=== PATIENT | female | born 1990 | race Caucasian/White ===

== ENCOUNTER 2019-03-20 13:36 | Emergency (ER) | payer OTHER ==
[2019-03-20 13:55] VITALS: BMI 25.0
--- NOTE | 2019-03-20 13:57 | PDOC ---
History of Present Illness - General Chief Complaint: CVA/TIA Stated Complaint: AWOKE WITH NUMBNESS TO RIGHT ARM YESTERDAY DV Time Seen by Provider: 03/20/19 13:45 - History of Present Illness Initial Comments: 03/20/19 14:04 Chief complaint: Slurred speech and right arm weakness History of present illness: Patient noted difficulty speaking yesterday around 4 PM in the afternoon, stating that she had trouble getting out her words and trouble articulating them clearly. This morning around 7 AM she awoke and felt that her right arm was weak. She denies numbness or paresthesias. She denies any symptoms in her right lower extremity, or her left extremities. She denies any visual symptoms. Review of systems: Denies recent fever/chills, URI symptoms, sore throat, cough , chest pain, shortness of breath, abdominal pain, nausea, vomiting, diarrhea, urinary tract symptoms, vaginal bleeding or discharge. Periods have been regular and she is on control pills denies missing any doses. Past medical history: Diagnosed with MS several years ago, symptoms at that time reported as visual and lower extremity, CT/MRI results are unknown, she received no treatment and has had no follow-up. Severe anxiety disorder, sees a therapist, exacerbation of symptoms recently. No other medical or surgical problems past her present, no regular medication. Social history: Denies drugs or alcohol or tobacco. Active and without disability, lives with mother, stable home Family history: Reviewed and noncontributory including neurologic disease, early coronary artery disease, metabolic disease including diabetes Physical exam: Alert and oriented, well-developed well-nourished, extremely anxious and tearful. Otherwise, appears to be in no physical distress Afebrile, vital signs normal PERRLA 4 mm, fundi benign, ENT clear Neck supple without bruit mass or nodes Chest clear to P&A, full breath sounds bilaterally. CV S1 and S2 normal without murmur rub or gallop pulses full and symmetric no JVD or edema no bruits 76 and regular Abdomen soft nontender without mass or organomegaly. All sounds normal. Nondistended Extremities no CCE Skin clear, no rash, adequate turgor and wet mucous membranes Neurological: C2 to 12 intact. No facial palsy is evident. Speech appears to be normal at this time. There is no slurred speech or dysarthria. Sensory examination is normal. 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 Babinski's down bilaterally. Impression: Possible recurrence of MS, possible subacute CVA with symptoms since 4 PM yesterday, possible severe anxiety reaction Plan: Labs, MRI, and further evaluation depending on results. Neurological consultation. Past History - Past Medical History Allergies/Adverse Reactions: Allergies Allergy/AdvReac Type Severity Reaction Status Date / Time No Known Allergies Allergy Verified 01/11/16 20:46 Home Medications: Ambulatory Orders Dimethyl Fumarate [Tecfidera] 240 mg PO BID 01/11/16 - Immunization History Td Vaccination: Yes Immunization Up to Date: Yes - Suicide/Smoking/Psychosocial Hx Smoking Status: No Smoking History: Never smoked Have you smoked in the past 12 months: No Number of Cigarettes Smoked Daily: 0 'Breaking Loose' booklet given: 01/11/16 Hx Alcohol Use: Yes Drug/Substance Use Hx: No Substance Use Type: None Critical Care Time/[facility] Note - Medical Decision Making Note: 03/20/19 15:19 Blood glucose is 59, potassium 3.2. Otherwise CBC chemistries and cardiac enzymes are without significant abnormalities. 03/20/19 17:34 MRI was unable to be performed because the patient could not adequately remove all her piercings. CT was performed and read by Dr. Tejeda. There is a new lesion in the left frontal cortex. It is uncertain whether this is a plaque from multiple sclerosis or a recent infarct. Neurology was paged and the patient to be admitted for further evaluation of the lesion. She is stable, alert and oriented , in no distress. 03/20/19 18:35 Repeat glucose 107 Repeat physical including neurologic exam was unchanged. Spoke to neurology consult Dr. Harrell. Case was thoroughly discussed, including the lab results and the results of the CT. He agreed that an MRI would be helpful in distinguishing plaque from acute infarct. However, MRI could not be performed because the patient was unable to remove the metal body piercings adorning her ears and nose. He also felt that there would be no danger discharging the patient and having her return tomorrow to be seen in his office with the attempt to remove remaining piercings and perform an adequate MRI. Admission, observation, and further evaluation and treatment was recommended to the patient, however, she was hesitant to be admitted to the hospital and preferred follow-up tomorrow as an outpatient with neurologist. She was given instructions to return to the emergency room immediately if any of her symptoms changed, otherwise see at 9:30 AM tomorrow March 21 at his office at [address] [place] [address] from [facility]. These written instructions were reviewed with the patient and her mother, who agreed to monitor the patient and ensure timely follow-up as directed. Patient fully ambulatory and in no acute distress at discharge to follow-up as recommended. *DC/Admit/Observation/Transfer Diagnosis at time of Disposition: Multiple sclerosis - Discharge Dispostion Disposition: HOME Condition at time of disposition: Stable Decision to Admit order: No - Referrals Referrals: Jamin Harrell MD [Staff Physician] - - Patient Instructions Additional Instructions: Return to the emergency room immediately if there is any change in your symptoms. Otherwise, you must see neurologist tomorrow for further evaluation and treatment, probably including an MRI. Hospitalization may be required. Eat regular meals to maintain your blood sugar. - Post Discharge Activity Forms/Work/School Notes: Back to Work
[2019-03-20 14:29] LABS: ALBUMIN 4.5 g/dl (3.4-5.0); BILIRUBIN,TOTAL 0.9 mg/dl (0.2-1); CALCIUM 9.1 mg/dl (8.5-10); CREATININE 0.7 mg/dl (0.55-1.3); POTASSIUM 3.2 mmol/L (3.5-5.1); TOT PROT 7.5 g/dl (6.4-8.2)
[2019-03-20 14:39] LABS: BASO % 0.5 % (0-2.0); EOS % 0.5 % (0-4.5); HEMATOCRIT 39.8 % (32.4-45.2); HEMOGLOBIN 13.5 GM/dl (10.7-15.3); LYMPH % 29.8 % (8-40); MCH 32.2 pg (25.7-33.7); MCHC 33.9 g/dl (32.0-36.0); MEAN CELL VOLUME 95.1 fl (80-96); MEAN PLT VOLUME 9.6 fl (7.5-11.1); MONO % 4.6 % (3.8-10.2); NEUT % 64.6 % (42.8-82.8); PLATELET COUNT 176 K/MM3 (134-434); RBC 4.18 M/mm3 (3.60-5.2); RDW 11.8 % (11.6-15.6); WHITE BLOOD COUNT 6.9 K/mm3 (4.0-10.8)
[2019-03-20 14:49] LABS: EPITHELIAL CELLS FEW /hpf
--- NOTE | 2019-03-20 15:23 | EKG ---
Test Reason : Blood Pressure : / mmHG Vent. Rate : 076 BPM Atrial Rate : 076 BPM P-R Int : 156 ms QRS Dur : 094 ms QT Int : 398 ms P-R-T Axes : 007 059 025 degrees QTc Int : 447 ms NORMAL SINUS RHYTHM NORMAL ECG NO PREVIOUS ECGS AVAILABLE Confirmed by LISA JOHNSON, WISAM ([id number]) on 03/20/2019 3:22:40 PM Referred By: DR COYNE Confirmed By:WISAM GONZALEZ MD
[2019-03-20] MEDS ORDERED: POTASSIUM CHLORIDE 10 MEQ in DEXTROSE 5%-NORMAL SALINE 1,000 ML IVPB SCH (15:30)
[2019-03-20] MEDS ORDERED: LORazepam 0.5 MG TABLET PO ONE (16:19)
[2019-03-20 16:31] VITALS: TEMP 97.1
[2019-03-20] MEDS ORDERED: LORazepam 0.5 MG TABLET ONE (16:38)
[2019-03-20 18:39] VITALS: BP 115/68; PULSE 68
== END 2019-03-20 18:36 | disposition home or self-care (01) ==
LOC: FER 13:36
DX: G35 Multiple sclerosis (principal)
CPT/HCPCS: 36415; 70450-TC; 80053; 81003; 81015; 82550; 82962; 84484; 84703; 85025; 87086; 93005; 99285-25

== ENCOUNTER 2019-04-02 17:12 | Inpatient (IN) | payer OTHER ==
--- NOTE | 2019-04-02 17:23 | PDOC ---
Rapid Medical Evaluation Time Seen by Provider: 04/02/19 17:21 Medical Evaluation: Allergies Allergy/AdvReac Type Severity Reaction Status Date / Time No Known Allergies Allergy Verified 01/11/16 20:46 04/02/19 17:23 The patient c/o: hx ms, sent by jaclyn echevarria for admission due to flare, Patient on brief exam: vss, ambulatory Patient ordered for: labs, urine, ekg, iv, and neuro consult Patient to proceed to the ED Discharge Disposition - Diagnosis Multiple sclerosis - Discharge Dispostion Condition at time of disposition: Stable - Referrals - Patient Instructions - Post Discharge Activity
[2019-04-02] MEDS ORDERED: methylPREDNISolone NA SUCC 125 MG/2 ML VIAL IVPB ONE (18:41)
--- NOTE | 2019-04-02 19:56 | PDOC ---
Documentation entered by Deb Minaya SCRIBE, acting as scribe for Mirela Henley MD. Mirela Henley MD: This documentation has been prepared by the Rei unger Adrianna, SCRIBE, under my direction and personally reviewed by me in its entirety. I confirm that the documentation accurately reflects all work, treatment, procedures, and medical decision making performed by me. History of Present Illness - General Stated Complaint: SENT BY PCP Time Seen by Provider: 04/02/19 17:21 History Source: Patient Exam Limitations: No Limitations - History of Present Illness Initial Comments: The patient is a 28 year old female, with a significant PMH of multiple sclerosis, severe anxiety disorder, and major depressive disorder, who presents to the emergency department today for MS flare up for 3 weeks. Patient notes she was diagnosed with MS several years ago, but her current flare up was the worst shes had. She notes that her entire right side of her body went numb and weak. Patient reports that she is right hand dominant, and has not been able to lift her arm to write or feed herself. She notes that her flare-ups in the past have caused symptoms on her left side and only lasted for a few days, but this is the first time she is experiencing right-sided symptoms that have lasted for over a week. She endorses associated slurred speech, which has been present for the past month. Patient was seen in the ED 3 weeks ago for the same complaint, and followed up with Dr. Harrell who placed her on a new medication 4 days ago for MS. She reports no changes in her symptoms, so Dr. Harrell advised she come to the ED for evaluation. Patient complains of a frontal headache while in the ED, which is secondary to crying. The patient denies chest pain, shortness of breath, and dizziness. Denies fever, chills, nausea, vomit, diarrhea and constipation. Denies dysuria, frequency, urgency and hematuria. Allergies: NKA Past surgical history: None reported Social history: Severe anxiety and major depressive disorder Neuro: Dr. Jamin Harrell 04/02/19 19:52 Past History - Past Medical History Allergies/Adverse Reactions: Allergies Allergy/AdvReac Type Severity Reaction Status Date / Time No Known Allergies Allergy Verified 01/11/16 20:46 Home Medications: Ambulatory Orders Dimethyl Fumarate [Tecfidera] 240 mg PO BID 01/11/16 Norethindrone-E.estradiol-Iron [Blisovi 24 Fe Tablet] 1 each PO DAILY 04/02/19 COPD: No - Immunization History Td Vaccination: Yes Immunization Up to Date: Yes - Suicide/Smoking/Psychosocial Hx Smoking Status: No Smoking History: Current every day smoker Have you smoked in the past 12 months: Yes Number of Cigarettes Smoked Daily: 0 Information on smoking cessation initiated: No 'Breaking Loose' booklet given: 01/11/16 Hx Alcohol Use: No Drug/Substance Use Hx: No Substance Use Type: None Review of Systems - Review of Systems Comments:: GENERAL/CONSTITUTIONAL: No fever or chills. No weakness. HEAD, EYES, EARS, NOSE AND THROAT: No change in vision. No ear pain or discharge. No sore throat. CARDIOVASCULAR: No chest pain or shortness of breath. RESPIRATORY: No cough, wheezing, or hemoptysis. GASTROINTESTINAL: No nausea, vomiting, diarrhea or constipation. GENITOURINARY: No dysuria, frequency, or change in urination. MUSCULOSKELETAL: No joint or muscle swelling or pain. No neck or back pain. SKIN: No rash NEUROLOGIC: +Frontal headache secondary to crying. +Right-sided numbness and weakness. +Slurred speech. No vertigo, loss of consciousness. ENDOCRINE: No increased thirst. No abnormal weight change. HEMATOLOGIC/LYMPHATIC: No anemia, easy bleeding, or history of blood clots. ALLERGIC/IMMUNOLOGIC: No hives or skin allergy. 04/02/19 19:52 *Physical Exam - Vital Signs Last Vital Signs Temp Pulse Resp BP Pulse Ox 98.1 F 98 H 18 127/79 100 04/02/19 17:21 04/02/19 17:21 04/02/19 17:21 04/02/19 17:21 04/02/19 17:21 - Physical Exam Comments: GENERAL: The patient is in no acute distress. HEAD: Normal with no signs of trauma. EYES: PERRLA, EOMI, sclera anicteric, conjunctiva clear. ENT: Ears normal, nares patent, oropharynx clear without exudates. Moist mucous membranes. NECK: Normal range of motion, supple without lymphadenopathy, JVD, or masses. LUNGS: Breath sounds equal, clear to auscultation bilaterally. No wheezes, and no crackles. HEART:Regular rate and rhythm, normal S1 and S2 without murmur, rub or gallop. ABDOMEN: Soft, nontender, normoactive bowel sounds. No guarding, no rebound. No masses palpable. EXTREMITIES: Normal range of motion, no edema. No clubbing or cyanosis. No erythema, or tenderness. NEUROLOGICAL: +RUE weakness. +Slurred speech. Cranial nerves II through XII grossly intact. MUSCULOSKELETAL: Back non-tender to palpation, no CVA tenderness SKIN: Warm, Dry, normal turgor, no rashes or lesions noted. 04/02/19 19:52 ED Treatment Course - LABORATORY CBC & Chemistry Diagram: 04/02/19 19:25 04/02/19 19:25 Medical Decision Making - Medical Decision Making 04/02/19 20:12 Ms Cárdenas is a 28 yo F who presents for admission for MS flair Pt s/p dx of MS Pt notes that approximately 1 month ago her speech was slurred/different than prior Two weeks ago, she work up and noted Right arm numbness This has progressively worsened to the point that her right arm is weak She was seen in the ER last week (CT performed, new frontal lesion) pt ultimately discharge to home and then followed up with Dr. Kothari She was started on Tecfidera Pt notes that she has become more unstable with walking, bumping into things Pt notes a headache (For which she typically takes motrin) No nausea No vomiting No diarrhea No fevers or chills Laboratory Tests 04/02/19 19:25 Sodium 140 Potassium 4.2 Chloride 105 Carbon Dioxide 28 BUN 11 Creatinine 1.0 Random Glucose 104 04/02/19 20:13 04/02/19 20:14 Pt presenting to the ER for admission for MS flair Pt seen by Neuro today who recommended Solumedrol 250mg IV q 6, PPI, RISS, PT MRI was already performed 04/02/19 20:25 Clinical impression: MS flair 04/02/19 20:39 Laboratory Tests 04/02/19 19:25 WBC 6.2 Hgb 13.6 Hct 40.2 Plt Count 178 04/02/19 22:07 EKG - Twelve-lead EKG was performed and reviewed by me. There is normal sinus rhythm with a normal rate. The axis is normal. The intervals are normal. There are no ST or T wave abnormalities. Impression: Normal twelve-lead EKG *DC/Admit/Observation/Transfer Diagnosis at time of Disposition: Multiple sclerosis - Discharge Dispostion Condition at time of disposition: Stable Decision to Admit order: Yes - Referrals - Patient Instructions - Post Discharge Activity
[2019-04-02 19:59] LABS: BASO % 0.8 % (0-2.0); EOS % 0.8 % (0-4.5); HEMATOCRIT 40.2 % (32.4-45.2); HEMOGLOBIN 13.6 GM/dL (10.7-15.3); LYMPH % 26.5 % (8-40); MCH 31.7 pg (25.7-33.7); MCHC 33.7 g/dl (32.0-36.0); MEAN CELL VOLUME 94.1 fl (80-96); MEAN PLT VOLUME 9.8 fl (7.5-11.1); MONO % 4.2 % (3.8-10.2); NEUT % 67.7 % (42.8-82.8); PLATELET COUNT 178 K/MM3 (134-434); RBC 4.28 M/mm3 (3.60-5.2); RDW 12.1 % (11.6-15.6); WHITE BLOOD COUNT 6.2 K/mm3 (4.0-10.0)
[2019-04-02] MEDS ORDERED: IBUPROFEN 600 MG TABLET (FP) PO ONE ×2 (20:03→21:08)
[2019-04-02 20:11] LABS: ALBUMIN 4.1 g/dl (3.4-5.0); BILIRUBIN,TOTAL 0.4 mg/dL (0.2-1); POTASSIUM 4.2 mmol/L (3.5-5.1); TOT PROT 7.6 g/dl (6.4-8.2)
[2019-04-02] MEDS ORDERED: PANTOPRAZOLE SODIUM 40 MG VIAL IVPUSH ONE (20:24)
[2019-04-02] MEDS ORDERED: methylPREDNISolone NA SUCC 125 MG/2 ML VIAL ONE (21:00)
[2019-04-02] MEDS ORDERED: PANTOPRAZOLE SODIUM 40 MG VIAL ONE (21:01)
--- NOTE | 2019-04-02 21:46 | PN ---
Teaching Attending Note Name of Resident: Sheridan Kaiser ATTENDING PHYSICIAN STATEMENT I saw and evaluated the patient. I reviewed the resident's note and discussed the case with the resident. I agree with the resident's findings and plan as documented. SUBJECTIVE: Sakina is a 28 year old woman with a PMH of multiple sclerosis, tobacco use ( eCigarettes?), severe anxiety disorder, and major depressive disorder, who presents to the ER for MS flare up. Patient notes she was diagnosed with MS several years ago, but her current flare up was the worst shes had. She notes that the entire right side of her body went numb and weak. Patient reports that she is right hand dominant, and has not been able to lift her arm to write or feed herself. She notes that her flare-ups in the past have caused symptoms on her left side and only lasted for a few days, but this is the first time she is experiencing right-sided symptoms that have lasted for a week. She has associated slurred speech, which has been present for the past month. Patient was seen in the ED 3 weeks ago for the same complaint, and followed up with Dr. Harrell who placed her on a new medication 4 days ago for MS. She reports no changes in her symptoms, so Dr. Harrell advised she come to the ER for evaluation. Patient complains of a frontal headache while in the ER, which is secondary to crying. The patient denies chest pain, shortness of breath, dizziness, fever, chills, nausea, vomiting, diarrhea, constipation, dysuria, frequency, urgency or hematuria. OBJECTIVE: Alert Vital Signs Period Temp Pulse Resp BP Sys/Rodas Pulse Ox Last 24 Hr 98.1 F 98 18 127/79 100 HEENT: No Jaundice, eye redness or discharge, PERRLA, EOMI. Normocephalic, atraumatic. External ears are normal and hearing is grossly intact. No nasal discharge. Neck: Supple, nontender. No palpable adenopathy or thyromegaly. No JVD Chest: Good effort. Clear to auscultation and percussion. Heart: Regular. No S3, rub or murmur Abdomen: Not distended, soft, nontender and no HSM. No rebound or guarding. Normal bowel sounds. Ext: Peripheral pulses intact. No leg edema. Skin: Warm and dry. No petechiae, rash or ecchymosis. Neuro: Alert. Oriented x3. CN 2-12 grossly intact. Slurred speech, expressive aphasia; right hemiparesis; slow gait, dragging right leg; Sensation grossly intact in all four extremities and DTR are symmetric. Psych: Appropriate mood and affect. Good insight. Home Medications Medication Instructions Recorded Dimethyl Fumarate [Tecfidera] 240 mg PO BID 01/11/16 Norethindrone-E.estradiol-Iron 1 each PO DAILY 04/02/19 [Blisovi 24 Fe Tablet] Abnormal Lab Results 04/02/19 19:25 Anion Gap 7 L Current Medications Generic Name Dose Route Start Last Admin Trade Name Freq PRN Reason Stop Dose Admin Enoxaparin Sodium 40 mg 04/03/19 10:00 Lovenox - SQ DAILY [facility] Insulin Aspart 1 vial 04/03/19 07:00 Novolog Vial Sliding Scale - SQ ACHS [facility] Protocol ASSESSMENT AND PLAN: 1. MS Flare - Brain and C-spine MRI show increase in MS lesions. Neurologist recommended treatment with Solumedrol 250 mg IV; also getting IV Protonix. Will do neurochecks, implement fall/aspiration precautions and provide generous emotional support. Consult psychiatry to devise a care plan for anxiety disorder and depression. 2. DM For now, we will hold the home diabetes drugs and implement sliding scale insulin regimen. Provide comprehensive diabetes care with patient teaching and counseling about the importance of adherence to prescribed diabetes regimen, euglycemia, eye care and foot care. 3. Tobacco Use Counseled on risks associated with tobacco use as well as eCigarettes. We will provide patient all the necessary assistance to facilitate smoking cessation and prescribe Nicotine patch. 4. Hypertension - Restart outpatient antihypertensive drugs and revise regimen to ensure smooth [id number] good BP control. Nonpharmacologic measures to control hypertension like weight loss, salt restriction and exercise discussed. 5. DVT prophylaxis - Lovenox 40 mg SQ q 24 hours. 6. Advance directives - Full code
--- NOTE | 2019-04-02 22:51 | HP ---
Admitting History and Physical - Primary Care Physician PCP: Dr Ballard - Admission Chief Complaint: Difficulty speaking, R sided weakness History of Present Illness: Pt is a 28 yo F with PMHx of MS (diagnosed 6 years ago), MDD, and HARLEY presenting with speech abnormality, and worsening R sided weakness. Pt noticed sudden speech difficulty about a month, with slurring of her speech and slowed mentation. No hx of trauma or falls. About 3 weeks ago, she noticed sudden numbness of her R hand, with eventual weakness of the right hand. She saw Dr Harrell 3 weeks go at [facility] and was restarted on her MS medications that were stopped 1 year earlier after 5 years of treatment. Over the past week, despite being on medication, she noticed weakness of RLE with associated gait abnormality. Patient is right hand dominant, and has been unable to lift her arm to write or feed herself. She had new imaging done- CT head and MRI showing progression of MS and was referred to the ED for admission for treatment with IV solumed 250mg Q6H, PPI, ISS, physical therapy to be admitted under Dr Ballard' s service. 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 Home Medications - Allergies Allergies/Adverse Reactions: Allergies Allergy/AdvReac Type Severity Reaction Status Date / Time No Known Allergies Allergy Verified 01/11/16 20:46 - Home Medications Home Medications: Ambulatory Orders Dimethyl Fumarate [Tecfidera] 240 mg PO BID 01/11/16 Norethindrone-E.estradiol-Iron [Blisovi 24 Fe Tablet] 1 each PO DAILY 04/02/19 Review of Systems - Review of Systems Constitutional: denies: Chills, Diaphoresis, Fever Eyes: reports: Blurred Vision HENT: denies: Difficult Swallowing, Hearing Loss, Mouth Swelling, Nasal Congestion Neck: reports: No Symptoms Cardiovascular: denies: Chest Pain, Edema, Palpitations, Shortness of Breath Respiratory: denies: Cough, Exercise Intolerance, SOB Gastrointestinal: denies: Abdominal Pain, Constipation, Diarrhea, Vomiting Genitourinary: denies: Burning, Discharge, Flank Pain Musculoskeletal: denies: Muscle Pain Neurological: reports: Change in Speech, Headache, Numbness, Unsteady Gait, Weakness. denies: Confusion, Dizziness Physical Examination Vital Signs: Vital Signs Temperature 98.1 F 04/02/19 17:21 Pulse Rate 98 H 04/02/19 17:21 Respiratory Rate 18 04/02/19 17:21 Blood Pressure 127/79 04/02/19 17:21 O2 Sat by Pulse Oximetry (%) 100 04/02/19 17:21 Constitutional: Yes: No Distress, Calm Eyes: Yes: EOM Intact, PERRL, Other (R horizontal nystagmus) Neck: Yes: Supple Cardiovascular: Yes: S1, S2 Respiratory: Yes: CTA Bilaterally Gastrointestinal: Yes: Normal Bowel Sounds, Soft Musculoskeletal: Yes: Muscle Weakness (RUE, RLE) Edema: No Peripheral Pulses WNL: Yes Integumentary: Yes: Tattoos Neurological: Yes: Alert, Oriented, Aphasia, Babinski positive (RLE), Cran Nerves II-XII Intact, Facial Droop (Flattened R nasolabial fold), Unsteady Gait (Hemiplegic gait). No: Ataxia (No dysdiachokinesia, no limb ataxia), Loss of Sensation ...Motor Strength: LUE (5/5), LLE (5/5), RUE (2/5 hand devops consultant, 4/5 Abduction, Limited hand raise to 90 degrees with drift on RUE), RLE (3/5) Psychiatric: Yes: Alert, Oriented Labs: CBC, BMP 04/02/19 19:25 04/02/19 19:25 Imaging - Results Cat Scan: Report Reviewed MRI: Report Reviewed Assessment/Plan Ambulatory Orders Dimethyl Fumarate [Tecfidera] 240 mg PO BID 01/11/16 Norethindrone-E.estradiol-Iron [Blisovi 24 Fe Tablet] 1 each PO DAILY 04/02/19 Assessment/Plan Pt is a 28 yo F with PMHx of MS (diagnosed 6 years ago), MDD, and HARLEY presenting with speech abnormality, and worsening R sided weakness. Assessment: MS MDD HARLEY Plan: Neuro consult- Dr Harrell Iv solumed 250mg Q6H PPI ISS PT Med surg Regular diet Visit type - Emergency Visit Emergency Visit: Yes ED Registration Date: 04/02/19 Care time: The patient presented to the Emergency Department on the above date and was hospitalized for further evaluation of their emergent condition. - New Patient This patient is new to me today: Yes Date on this admission: 04/03/19 - Critical Care Critical Care patient: No
[2019-04-02 23:41] LABS: HYALINE CASTS 2 /lpf (0-8); URINE APPEARANCE CLEAR; URINE BILIRUBIN NEGATIVE (NEGATIVE); URINE COLOR YELLOW; URINE GLUCOSE (UA) NEGATIVE (NEGATIVE); URINE KETONE TRACE (NEGATIVE); URINE LEUK ESTERASE 1+ (NEGATIVE); URINE NITRITE NEGATIVE (NEGATIVE); URINE PROTEIN NEGATIVE (NEGATIVE); URINE RBC 3 /hpf (0-4); URINE WBC 5 /hpf (0-5)
[2019-04-02 23:43] LABS: HCG,QUALITATIVE URINE Negative
[2019-04-03 03:09] VITALS: BMI 25.4
[2019-04-03] MEDS: methylPREDNISolone NA SUCC 125 MG/2 ML VIAL IVPB SCH ×4 (03:52→21:09)
[2019-04-03] MEDS ORDERED: INSULIN (NOVOLOG) ASPART 100 UNITS/ML 10ML VIAL ONE ×2 (06:10→21:36)
[2019-04-03] MEDS: INSULIN SLIDING SCALE (NOVOLOG) 1 VIAL SQ SCH ×4 (06:30→22:01)
--- NOTE | 2019-04-03 08:58 | CONSULT ---
Consult - text type - Consultation Consultation Note: Neurology Chief Complaint: Difficulty speaking, R sided weakness History of Present Illness: 28 yo F with PMHx of MS (diagnosed 6 years ago, previously followed by Dr. Farah) , MDD, and HARLEY presenting with speech abnormality, and worsening R sided weakness. Pt noticed sudden speech difficulty about a month, with slurring of her speech and slowed mentation. No hx of trauma or falls. About 3 weeks ago, she noticed sudden numbness of her R hand, with eventual weakness of the right hand. She had no been on MS medication for 1.5 years because of flushing from Tecfidera which she had been on. Approximately one week ago, she noticed weakness of RLE with associated gait abnormality, difficulty with speech, RUE weakness. [facility] CT head which showed L periventricular lesion. She was not able to have MRI there because of piercings and therefore was sent to see me in the office a day later. I ordered MRI brain and C spine at the office which showed progression of MS plaque burden in brain, also plaques diffusely in C spine from C2-C6. She was started on Tecfidera immediately once labs completed last week and was seen by me in the office yesterday. Due to continued symptoms we discussed admission for IV steroids and she was in agreement. Plan would be for 3-5 days of steroids (to end Monday evening or Monday evening) depending on patient's course. 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 Family: Mother with MS Home Medications - Allergies Allergies/Adverse Reactions: Allergies Allergy/AdvReac Type Severity Reaction Status Date / Time No Known Allergies Allergy Verified 01/11/16 20:46 - Home Medications Home Medications: Ambulatory Orders Dimethyl Fumarate [Tecfidera] 240 mg PO BID 01/11/16 Norethindrone-E.estradiol-Iron [Blisovi 24 Fe Tablet] 1 each PO DAILY 04/02/19 Review of Systems - Review of Systems Constitutional: denies: Chills, Diaphoresis, Fever Eyes: reports: Blurred Vision HENT: denies: Difficult Swallowing, Hearing Loss, Mouth Swelling, Nasal Congestion Neck: reports: No Symptoms Cardiovascular: denies: Chest Pain, Edema, Palpitations, Shortness of Breath Respiratory: denies: Cough, Exercise Intolerance, SOB Gastrointestinal: denies: Abdominal Pain, Constipation, Diarrhea, Vomiting Genitourinary: denies: Burning, Discharge, Flank Pain Musculoskeletal: denies: Muscle Pain Neurological: reports: Change in Speech, Headache, Numbness, Unsteady Gait, Weakness. denies: Confusion, Dizziness Physical Examination Vital Signs: Vital Signs Temperature 98.1 F 04/02/19 17:21 Pulse Rate 98 H 04/02/19 17:21 Respiratory Rate 18 04/02/19 17:21 Blood Pressure 127/79 04/02/19 17:21 O2 Sat by Pulse Oximetry (%) 100 04/02/19 17:21 Constitutional: Yes: No Distress, Calm Eyes: Yes: EOM Intact, PERRL, Other (R horizontal nystagmus) Neck: Yes: Supple Cardiovascular: Yes: S1, S2 Respiratory: Yes: CTA Bilaterally Gastrointestinal: Yes: Normal Bowel Sounds, Soft Musculoskeletal: Yes: Muscle Weakness (RUE, RLE) Edema: No Peripheral Pulses WNL: Yes Integumentary: Yes: Tattoos Neurological: Yes: Alert, Oriented, Aphasia, Babinski positive (RLE), Cran Nerves II-XII Intact, Facial Droop (Flattened R nasolabial fold), Unsteady Gait (Hemiplegic gait). No: Ataxia (No dysdiachokinesia, no limb ataxia), Loss of Sensation, LUE (5/5), LLE (5/5), RUE (2/5 hand foxing closer, 4/5 Abduction, Limited hand raise to 90 degrees with drift on RUE), RLE (3/5) Psychiatric: Yes: Alert, Oriented CBCD WBC 6.2 K/mm3 (4.0-10.0) 04/02/19 19:25 RBC 4.28 M/mm3 (3.60-5.2) 04/02/19 19:25 Hgb 13.6 GM/dL (10.7-15.3) 04/02/19 19:25 Hct 40.2 % (32.4-45.2) 04/02/19 19:25 MCV 94.1 fl (80-96) 04/02/19 19:25 MCHC 33.7 g/dl (32.0-36.0) 04/02/19 19:25 RDW 12.1 % (11.6-15.6) 04/02/19 19:25 Plt Count 178 K/MM3 (134-434) 04/02/19 19:25 MPV 9.8 fl (7.5-11.1) 04/02/19 19:25 CMP Sodium 140 mmol/L (136-145) 04/02/19 19:25 Potassium 4.2 mmol/L (3.5-5.1) 04/02/19 19:25 Chloride 105 mmol/L (98-107) 04/02/19 19:25 Carbon Dioxide 28 mmol/L (21-32) 04/02/19 19:25 Anion Gap 7 MMOL/L (8-16) L 04/02/19 19:25 BUN 11 mg/dL (7-18) 04/02/19 19:25 Creatinine 1.0 mg/dL (0.55-1.3) 04/02/19 19:25 Random Glucose 104 mg/dL (74-106) 04/02/19 19:25 Calcium 9.0 mg/dL (8.5-10.1) 04/02/19 19:25 Total Bilirubin 0.4 mg/dL (0.2-1) 04/02/19 19:25 AST 15 U/L (15-37) 04/02/19 19:25 ALT 27 U/L (13-61) 04/02/19 19:25 Alkaline Phosphatase 49 U/L (45-117) 04/02/19 19:25 Total Protein 7.6 g/dl (6.4-8.2) 04/02/19 19:25 Albumin 4.1 g/dl (3.4-5.0) 04/02/19 19:25 Assessment/Plan 28 yo F with PMHx of MS (diagnosed 6 years ago, previously followed by Dr. Farah) , MDD, and HARLEY presenting with speech abnormality, and worsening R sided weakness. Pt noticed sudden speech difficulty about a month, with slurring of her speech and slowed mentation. No hx of trauma or falls. About 3 weeks ago, she noticed sudden numbness of her R hand, with eventual weakness of the right hand. She had no been on MS medication for 1.5 years because of flushing from Tecfidera which she had been on. Approximately one week ago, she noticed weakness of RLE with associated gait abnormality, difficulty with speech, RUE weakness. She presented to [place] where she completed CT head which showed L periventricular lesion. She was not able to have MRI there because of piercings and therefore was sent to see me in the office a day later. I ordered MRI brain and C spine at the office which showed progression of MS plaque burden in brain, also plaques diffusely in C spine from C2-C6. She was started on Tecfidera immediately once labs completed last week and was seen by me in the office yesterday. Due to continued symptoms we discussed admission for IV steroids and she was in agreement. Plan would be for 3-5 days of steroids (to end Monday evening or Monday evening) depending on patient's course. Added speech/swallow eval. PPI added. RISS ordered already. Physical therapy would be of benefit. Fall precautions.
--- NOTE | 2019-04-03 10:03 | EKG ---
Test Reason : Blood Pressure : / mmHG Vent. Rate : 087 BPM Atrial Rate : 087 BPM P-R Int : 176 ms QRS Dur : 092 ms QT Int : 348 ms P-R-T Axes : 070 059 035 degrees QTc Int : 418 ms NORMAL SINUS RHYTHM NORMAL ECG WHEN COMPARED WITH ECG OF 20-MAR-2019 13:51, NO SIGNIFICANT CHANGE WAS FOUND Confirmed by WISAM GONZALEZ MD ([id number]) on 04/03/2019 10:02:41 AM Referred By: Confirmed By:WISAM GONZALEZ MD
--- NOTE | 2019-04-03 10:34 | CONSULT ---
Admitting History and Physical - Primary Care Physician PCP: Idris Ballard - Admission History of Present Illness: Unfortunate 28 yo F with PMHx of MS (diagnosed 6 years ago), MDD, and HARLEY presenting with speech abnormality, and worsening R sided weakness. Pt noticed sudden speech difficulty about a month. CT head and MRI showing progression of MS and was referred to the ED for admission for treatment with IV solumed 250mg Q6H, PPI, ISS, physical therapy to be admitted under Dr Ballard's service. 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 Attends psychotherapy.) Attention: Intact Ability to Follow Directions: Excellent Head/Neck Control: WFL - Hearing Hearing: Normal Speech Evaluation - Communication Primary Language: [place] Communication: Yes: Aphasia Oral Expression Ability: Yes: Mild Impairment - Speech Production Able to Make Needs Known: Yes: Mildly Impaired Intelligibility: Yes: WNL - Speech Characteristics Voice Loudness: Normal Voice Pitch: Yes: Normal Voice Phonatory-based Quality: Yes: Normal Speech Pattern: Impaired Speech Clarity: < 100% Nasal Resonance: Normal Articulation: Yes: Precise - Language/Auditory Comprehension Follows: Yes: 2 Stage Simple Commands Observation: Able to respond to yes/no queries: Yes, Yes/No Confusion: No, Comprehends Conversational Speech: Yes - Language/Verbal Expression Aphasia: Yes: Anomia (Reduced fluency with scanning speech. No word errors. Repetition, naming intact. Verbal fluency mildly reduced.) Able to Respond to Simple Queries: Yes: Mildly Impaired Able to Communicate Wants and Needs: Yes: Mildly Impaired Functional Communication Status: Yes: WNL - Memory/Perception [facility] Memory: Yes: WNL Short Term Memory: Yes: WNL - Swallow Evaluation/Bedside Assessment Current Nutritional Intake: Regular, Thin Liquids Oral Secretions: Yes: WFL Dentition: Yes: Adequate Facial Symmetry at Rest: Facial Droop Right (mild) Facial Symmetry on Retraction: Facial Droop Right (mild) Against Resistance Opening: Normal Against Resistance Closing: Normal Lingual Movement: Deviates Right (slight) Lingual Movement Characteristics: Normal Velopharyngeal Movement: Normal Laryngeal Movement: Able to Palpate Rate of Intake: WFL Bolus Size: WFL Labial Seal: WFL Chewing: WFL Oral Prep Time: WFL A-P Transit: WFL Pocketing: None Timing of Swallow: WFL Coughing/Throat Clear: No (Pt reports cough with liquids at times) Change in Voice: No Recommendations - Speech Evaluation, Impression/Plan Impression: 28 yo with MS exaccerbation, with reduced word retrieval and fluency of speech.Able to name,repeat,express herself accurately, but slowly, with good functional communication.Possibly mild Ataxia? Cognition at present seems good. Pt reports mild Dysphagia with thin liquids, not observed. - Disposition Discharge to: Rehabilitation Center (Consider [facility] for intensive PT/OT/ Speech/cognitive w/u for baseline.) - Dysphagia Impressions/Plan Dysphagia Impressions: Mild Impairment, Ongoing Evaluation *Silent aspiration: cannot be R/O at bedside Dysphagia Treatment Plan: Labial Exercises, Lingual Exercises, Swallowing Exercises, Pharyngeal Resistive Exer, Small Bites, Chin Tuck/Down, Safe Rate, 1/ 2 tsp. at a time, OOB for meals, OOB for 1 h. after meals Recommendations: Modified Barium Swallow - Recommendations Diet Consistency: Regular Medication Administration: Whole with water Liquids: Thin Liquids
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
[2019-04-03] MEDS: PANTOPRAZOLE 40 MG TABLET (FP) PO SCH (11:06)
[2019-04-03] MEDS: ENOXAPARIN NA (PORCINE) 40 MG/0.4 ML DISP.SYRIN SQ SCH (11:06)
--- NOTE | 2019-04-03 13:52 | PN ---
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 She attends psychotx sessions but is not on any Psych medication. Reviewed with PMD.
[2019-04-03] MEDS: clonazePAM 0.5 MG TABLET PO PRN ×2 (15:58→22:27)
--- NOTE | 2019-04-03 16:18 | PN ---
Teaching Attending Note Name of Resident: Flory Hall ATTENDING PHYSICIAN STATEMENT I saw and evaluated the patient. I reviewed the resident's note and discussed the case with the resident. I agree with the resident's findings and plan as documented. SUBJECTIVE: Ms Cárdenas complains of being very anxious. Denies cp, sob, n/v. OBJECTIVE: Last Vital Signs Temp Pulse Resp BP Pulse Ox 37.1 C 77 20 114/62 99 04/03/19 14:41 04/03/19 14:41 04/03/19 14:41 04/03/19 14:41 04/02/19 19:56 Gen: nad HEENT: facial droop noted Pulm: ctab w/o w/r/r CV: rrr w/o m/r/g Abd: +bs, s/nt/nd Ext: no c/c/e CBC, BMP 04/02/19 19:25 04/02/19 19:25 ASSESSMENT AND PLAN: Problem List - Problems (1) Multiple sclerosis Assessment/Plan: -case d/w Dr Harrell -on high dose solumedrol -treat 3-5 days dependent on response -on protonix and SSI for prophylaxis Code(s): G35 - MULTIPLE SCLEROSIS (2) Anxiety disorder Assessment/Plan: -prn klonipin -psychiatry consult Code(s): F41.9 - ANXIETY DISORDER, UNSPECIFIED
--- NOTE | 2019-04-03 18:14 | CON.PSY ---
Psychiatry Consult Chief Complaint: 28 [place] old female with 10 yr history of MS admitted with acute exacerbaion. Being managed by DR. Kim. She reports feeling depresseda nd anxious and fatigued. Had been on Provigil withj some relief of fatigue. Never been on any anti depressants. Symptoms: reports: Depressed Mood, Decreased Motivation - Previous Psychiatric Treatment Outpatient: Less than 6 mos ago Inpatient: None - Previous Substance Abuse Treatment Outpatient: None Inpatient: None - Reason for Previous Treatment Reason for Previous Treatment: Major Depression - Current Medications Current Medications: Active Medications Clonazepam (Klonopin -) 0.5 mg PO BID PRN PRN Reason: ANXIETY Last Admin: 04/03/19 15:58 Dose: 0.5 mg Docusate Sodium (Colace -) 100 mg PO BID [facility] Duloxetine HCl (Cymbalta -) 20 mg PO DAILY [facility] Enoxaparin Sodium (Lovenox -) 40 mg SQ DAILY [facility] Last Admin: 04/03/19 11:06 Dose: Not Given Insulin Aspart (Novolog Vial Sliding Scale -) 1 vial SQ [facility]; Protocol Last Admin: 04/03/19 17:56 Dose: 4 units Methylprednisolone Sodium Succinate (Solu-Medrol -) 250 mg IVPB Q6H-IV [facility] Last Admin: 04/03/19 15:57 Dose: 250 mg Pantoprazole Sodium (Protonix -) 40 mg PO DAILY [facility] Last Admin: 04/03/19 11:06 Dose: 40 mg - Allergies Allergies: Allergies Allergy/AdvReac Type Severity Reaction Status Date / Time No Known Allergies Allergy Verified 01/11/16 20:46 - Current Living Status Usual Living Arrangement: With Parent - Current Mental Status Evaluation Appearance: Well Groomed Attitude: Cooperative - Affect Affect: Constrictive Appropriateness: Appropriate to Content - Mood Mood: Depressed, Anxious - Speech/Language Expressive: Coherent - Psychomotor Activity Psychomotor Activity: Slowed - Thought Process Thought Process: Intact - Thought Content Hallucinations: Absent Delusions: Absent - Self Perception Self Perception: No Impairment - Cognition Attention: Alert Orientation: Time Memory, Immediate Recall: Intact Memory, Short Term: 3/3 Memory, Remote with Promptin/3 - Concentration Serial Sevens Intact: Yes Simple Calculations Intact: Yes - Abstraction Proverb Interpretation: Intact Judgement: Intact - Insight Insight: Intact - Impulse Control Impulse Control: Good Control - Suicidal Ideation Suicidal Ideation: No - Homicidal Ideation Homicidal Ideation: No Assessment/Plan 1) will start Cymbalta 20mg po od for anxirty and depression. @) Would recemmend adding Provigil for fatigue by dr. Kim.
[2019-04-03] MEDS: DOCUSATE SODIUM 100 MG CAPSULE (FP) PO SCH ×2 (22:02→22:03)
[2019-04-04] MEDS: methylPREDNISolone NA SUCC 125 MG/2 ML VIAL IVPB SCH ×4 (03:02→21:45)
[2019-04-04] MEDS: INSULIN SLIDING SCALE (NOVOLOG) 1 VIAL SQ SCH ×4 (06:27→21:49)
--- NOTE | 2019-04-04 07:51 | PN ---
Physical Exam: SUBJECTIVE: Patient seen and examined resting in bed nad, no acute events, afebrile hemodynamically stable. states her RUE, RLE weakness is improving. saw psychiatrist. has been taking klonopin once a day OBJECTIVE: Vital Signs Period Temp Pulse Resp BP Sys/Rodas Pulse Ox Last 24 Hr 97.3 F-98.7 F 77-92 18-20 100-124/49-68 99-99 GENERAL: The patient is awake, alert, and fully oriented, in no acute distress. HEAD: Normal with no signs of trauma. EYES: PERRL, extraocular movements intact, sclera anicteric, conjunctiva clear. ENT: moist mucous membranes. NECK: supple. LUNGS: Breath sounds equal, clear to auscultation bilaterally HEART: Regular rate and rhythm, S1, S2 ABDOMEN: Soft, nontender, nondistended, normoactive bowel sounds, no guarding, no rebound. NEUROLOGICAL: facial droop on the R, tongue deviation to the R, L lid lag, rue strength 3/5 worse distally, RLE strenght 4+/5 worse distally, proximally 4+/5, bicep andpatellare reflexes 1+ b/l. PSYCH: Normal mood, normal affect. SKIN: Warm, dry Laboratory Results - last 24 hr 04/03/19 04/03/19 04/03/19 12:36 17:55 21:15 POC Glucometer 188 236 143 04/04/19 06:16 POC Glucometer 145 Active Medications Generic Name Dose Route Start Last Admin Trade Name Freq PRN Reason Stop Dose Admin Clonazepam 0.5 mg 04/03/19 14:41 04/03/19 22:27 Klonopin - PO 0.5 mg BID PRN Administration ANXIETY Docusate Sodium 100 mg 04/03/19 22:00 04/03/19 22:03 Colace - PO 100 mg BID ZAY Administration Duloxetine HCl 20 mg 04/04/19 10:00 Cymbalta - PO DAILY ZAY Enoxaparin Sodium 40 mg 04/03/19 10:00 04/03/19 11:06 Lovenox - SQ Not Given DAILY [facility] Insulin Aspart 1 vial 04/03/19 07:00 04/04/19 06:27 Novolog Vial Sliding Scale - SQ Not Given [facility] Protocol Methylprednisolone Sodium Succinate 250 mg 04/03/19 03:45 04/04/19 03:02 Solu-Medrol - IVPB 250 mg Q6H-IV ZAY Administration Pantoprazole Sodium 40 mg 04/03/19 10:00 04/03/19 11:06 Protonix - PO 40 mg DAILY ZAY Administration ASSESSMENT/PLAN: This is a 28 yo F with PMH of MS (diagnosed 6 yrs ago), MDD, and HARLEY, presenting per Dr Danisha barker with speech abnormality, and worsening R sided weakness to receive IV steroids. slurring of her speech and slowed mentation x 1 mo, R hand numbness x 3w, RUE weakness, RLE weakness with gait bnormality and worsened dysarthria x 1w. CT head 03/20: L periventricular lesion. MRI brain 03/27 and C spine 03/30: progression of MS plaque burden in brain , plaques diffusely in C spine from C2-C6. She had not been on MS medication for 1.5 years due to flushing from Tecfidera. Restarted on Tecfidera last week. Acute on Chronic exacerbation of MS MDD HARLEY -Medrol 250 q6h for 3-5 days (to end mon or monday evening) pending clinical improvement -ISS, BGM ACHS -PPI gi ppx, sandra dvt ppx -speech swallow eval completed with barium swallow; mildly labored mastication. no change in diet -PT -psych consult, prn klonopin. started on ssri Problem List - Problems (1) Major depression Code(s): F32.9 - MAJOR DEPRESSIVE DISORDER, SINGLE EPISODE, UNSPECIFIED (2) Anxiety disorder Code(s): F41.9 - ANXIETY DISORDER, UNSPECIFIED (3) Multiple sclerosis Code(s): G35 - MULTIPLE SCLEROSIS Visit type - Emergency Visit Emergency Visit: Yes ED Registration Date: 04/02/19 Care time: The patient presented to the Emergency Department on the above date and was hospitalized for further evaluation of their emergent condition. - New Patient This patient is new to me today: No - Critical Care Critical Care patient: No - Discharge Referral Referred to [facility] No
[2019-04-04 08:02] LABS: HEMATOCRIT 36.1 % (32.4-45.2); HEMOGLOBIN 12.4 GM/dL (10.7-15.3); LYMPH % 6.7 % (8-40); MCH 32.4 pg (25.7-33.7); MCHC 34.5 g/dl (32.0-36.0); MEAN PLT VOLUME 9.7 fl (7.5-11.1); MONO % 1.9 % (3.8-10.2); NEUT % 91.4 % (42.8-82.8); PLATELET COUNT 165 K/MM3 (134-434); RBC 3.84 M/mm3 (3.60-5.2); RDW 12.2 % (11.6-15.6); WHITE BLOOD COUNT 8.6 K/mm3 (4.0-10.0)
--- NOTE | 2019-04-04 08:07 | PN ---
Teaching Attending Note Name of Resident: Flory Hall ATTENDING PHYSICIAN STATEMENT I saw and evaluated the patient. I reviewed the resident's note and discussed the case with the resident. I agree with the resident's findings and plan as documented with exceptions below. SUBJECTIVE: Patient seen and examined. Right arm/leg weakness, speech improved. Anxiety better currently. OBJECTIVE: Vital Signs Period Temp Pulse Resp BP Sys/Rodas Pulse Ox Last 24 Hr 97.3 F-98.1 F 78-113 18-20 100-124/49-70 99 Intake & Output 04/01/19 04/02/19 04/03/19 04/04/19 23:59 23:59 23:59 23:59 Intake Total 240 1455 100 Balance 240 1455 100 Weight 162 lb 1.6 oz General: sitting in bed in no acute distress Neuro: AAOX3, slurred speech, RUE hand dam attendant 2-3/5, RLE 4/5, LUE/LLE 5/5 Home Medications Medication Instructions Recorded Dimethyl Fumarate [Tecfidera] 240 mg PO BID 01/11/16 Norethindrone-E.estradiol-Iron 1 each PO DAILY 04/02/19 [Blisovi 24 Fe Tablet] Active Medications Clonazepam (Klonopin -) 0.5 mg PO BID PRN PRN Reason: ANXIETY Last Admin: 04/04/19 14:17 Dose: 0.5 mg Docusate Sodium (Colace -) 100 mg PO BID [facility] Last Admin: 04/04/19 09:32 Dose: 100 mg Duloxetine HCl (Cymbalta -) 20 mg PO DAILY [facility] Last Admin: 04/04/19 09:32 Dose: 20 mg Enoxaparin Sodium (Lovenox -) 40 mg SQ DAILY [facility] Last Admin: 04/04/19 09:36 Dose: Not Given Insulin Aspart (Novolog Vial Sliding Scale -) 1 vial SQ ACHS [facility]; Protocol Last Admin: 04/04/19 12:02 Dose: Not Given Methylprednisolone Sodium Succinate (Solu-Medrol -) 250 mg IVPB Q6H-IV [facility] Last Admin: 04/04/19 14:17 Dose: 250 mg Pantoprazole Sodium (Protonix -) 40 mg PO DAILY [facility] Last Admin: 04/04/19 09:32 Dose: 40 mg Laboratory Results - last 24 hr 04/03/19 04/03/1919 17:55 21:15 06:16 WBC RBC Hgb Hct MCV MCH MCHC RDW Plt Count MPV Absolute Neuts (auto) Neutrophils % Neutrophils % (Manual) Band Neutrophils % Lymphocytes % Lymphocytes % (Manual) Monocytes % Monocytes % (Manual) Eosinophils % Eosinophils % (Manual) Basophils % Basophils % (Manual) Myelocytes % (Man) Promyelocytes % (Man) Blast Cells % (Manual) Nucleated RBC % Metamyelocytes Hypochromia Platelet Estimate Polychromasia Poikilocytosis Anisocytosis Microcytosis Macrocytosis PTT (Actin FS) Sodium Potassium Chloride Carbon Dioxide Anion Gap BUN Creatinine Est GFR (CKD-EPI)AfAm Est GFR (CKD-EPI)NonAf POC Glucometer 236 143 145 Random Glucose Calcium Phosphorus Magnesium Total Bilirubin AST ALT Alkaline Phosphatase Total Protein Albumin TSH 04/04/19 04/04/19 04/04/19 07:15 07:15 07:15 WBC 8.6 RBC 3.84 Hgb 12.4 Hct 36.1 MCV 94.0 MCH 32.4 MCHC 34.5 RDW 12.2 Plt Count 165 MPV 9.7 Absolute Neuts (auto) 7.9 Neutrophils % 91.4 H D Neutrophils % (Manual) 91.0 H Band Neutrophils % 0.0 Lymphocytes % 6.7 L D Lymphocytes % (Manual) 8.0 Monocytes % 1.9 L Monocytes % (Manual) 1 L Eosinophils % 0.0 D Eosinophils % (Manual) 0.0 Basophils % 0.0 Basophils % (Manual) 0.0 Myelocytes % (Man) 0 Promyelocytes % (Man) 0 Blast Cells % (Manual) 0 Nucleated RBC % 0 Metamyelocytes 0 Hypochromia 0 Platelet Estimate Normal Polychromasia 0 Poikilocytosis 0 Anisocytosis 0 Microcytosis 0 Macrocytosis 0 PTT (Actin FS) 25.5 Sodium 141 Potassium 3.8 Chloride 107 Carbon Dioxide 25 Anion Gap 9 BUN 12 Creatinine 0.8 Est GFR (CKD-EPI)AfAm 117.10 Est GFR (CKD-EPI)NonAf 101.04 POC Glucometer Random Glucose 148 H Calcium 9.3 Phosphorus 4.4 Magnesium 2.0 Total Bilirubin 0.7 AST 10 L ALT 25 Alkaline Phosphatase 41 L Total Protein 7.1 Albumin 3.9 TSH 0.34 L 04/04/19 11:50 WBC RBC Hgb Hct MCV MCH MCHC RDW Plt Count MPV Absolute Neuts (auto) Neutrophils % Neutrophils % (Manual) Band Neutrophils % Lymphocytes % Lymphocytes % (Manual) Monocytes % Monocytes % (Manual) Eosinophils % Eosinophils % (Manual) Basophils % Basophils % (Manual) Myelocytes % (Man) Promyelocytes % (Man) Blast Cells % (Manual) Nucleated RBC % Metamyelocytes Hypochromia Platelet Estimate Polychromasia Poikilocytosis Anisocytosis Microcytosis Macrocytosis PTT (Actin FS) Sodium Potassium Chloride Carbon Dioxide Anion Gap BUN Creatinine Est GFR (CKD-EPI)AfAm Est GFR (CKD-EPI)NonAf POC Glucometer 153 Random Glucose Calcium Phosphorus Magnesium Total Bilirubin AST ALT Alkaline Phosphatase Total Protein Albumin TSH ASSESSMENT AND PLAN: 28 yof with PMhx of MS, MDD, HARLEY, sent by neurologist for Right sided weakness and slurred speech progressive over 1 month and MRI brain consistent with worsening demyelinating lesions, for pulse dose steroids -Multiple sclerosis flare -Generalized anxiety disorder -MDD Plan: Neurology input noted. Symptoms improved Solumedrol IV 3-5 days. Recently resumed on Tecfidera outpatient Psychiatry input noted. Continue cymbalta. Discussed with neurology, hold off on provigil for now. ISS while on steroids PT eval noted, rec Dial. DVTPPX lovenox Dispo d/c in 3-5 days after IV steroids pending clinical improvement. Plan discussed with patient and nursing, all questions answered.
[2019-04-04 08:22] LABS: ALBUMIN 3.9 g/dl (3.4-5.0); BILIRUBIN,TOTAL 0.7 mg/dL (0.2-1); CALCIUM 9.3 mg/dL (8.5-10.1); CREATININE 0.8 mg/dL (0.55-1.3); PHOSPHOROUS 4.4 mg/dL (2.5-4.9); POTASSIUM 3.8 mmol/L (3.5-5.1); TOT PROT 7.1 g/dl (6.4-8.2)
--- NOTE | 2019-04-04 08:34 | PN ---
Progress Note (short form) - Note Progress Note: Neurology Chief Complaint: Difficulty speaking, R sided weakness History of Present Illness: 28 yo F with PMHx of MS (diagnosed 6 years ago, previously followed by Dr. Farah) , MDD, and HARLEY presenting with speech abnormality, and worsening R sided weakness. Pt noticed sudden speech difficulty about a month, with slurring of her speech and slowed mentation. No hx of trauma or falls. About 3 weeks ago, she noticed sudden numbness of her R hand, with eventual weakness of the right hand. She had no been on MS medication for 1.5 years because of flushing from Tecfidera which she had been on. Approximately one week ago, she noticed weakness of RLE with associated gait abnormality, difficulty with speech, RUE weakness. She presented to [facility] where she completed CT head which showed L periventricular lesion. She was not able to have MRI there because of piercings and therefore was sent to see me in the office a day later. I ordered MRI brain and C spine at the office which showed progression of MS plaque burden in brain, also plaques diffusely in C spine from C2-C6. She was started on Tecfidera immediately once labs completed last week and was seen by me in the office yesterday. Due to continued symptoms we discussed admission for IV steroids and she was in agreement. Plan would be for 3-5 days of steroids (to end Monday evening or Monday evening) depending on patient's course. Today is day two and she reports some increase in RLE strength, filter press supervisor of RUE seems the same but bicep flexion slightly improved. Spoke to speech therapist yesterday, note reviewed. Patient may be a candidate for [facility] and she is interested in therapy. Discussed with nurse this AM to ask for case management assistance. No ill effects from steroids, is on PPI, RISS. Also spoke to resident yesterday about anxiety. Has remote h/o of abusing xanax 6 years ago for a month ( resident reported this was confirmed by mother). She had a panic attack during barium swallow. Patient started on very low dose Klonipin, would try to avoid benzos as outpatient as much as possible but in agreement for use during inpatient stay which is stressful for her. Psych consulted, note reviewed, and recommended Cymbalta, no objection to this. Home Medications - Allergies Allergies/Adverse Reactions: Allergies Allergy/AdvReac Type Severity Reaction Status Date / Time No Known Allergies Allergy Verified 01/11/16 20:46 - Home Medications Home Medications: Ambulatory Orders Dimethyl Fumarate [Tecfidera] 240 mg PO BID 01/11/16 Norethindrone-E.estradiol-Iron [Blisovi 24 Fe Tablet] 1 each PO DAILY 04/02/19 Active Medications Clonazepam (Klonopin -) 0.5 mg PO BID PRN PRN Reason: ANXIETY Last Admin: 04/03/19 22:27 Dose: 0.5 mg Docusate Sodium (Colace -) 100 mg PO BID [facility] Last Admin: 04/03/19 22:03 Dose: 100 mg Duloxetine HCl (Cymbalta -) 20 mg PO DAILY [facility] Enoxaparin Sodium (Lovenox -) 40 mg SQ DAILY [facility] Last Admin: 04/03/19 11:06 Dose: Not Given Insulin Aspart (Novolog Vial Sliding Scale -) 1 vial SQ [facility]; Protocol Last Admin: 04/04/19 06:27 Dose: Not Given Methylprednisolone Sodium Succinate (Solu-Medrol -) 250 mg IVPB Q6H-IV [facility] Last Admin: 04/04/19 03:02 Dose: 250 mg Pantoprazole Sodium (Protonix -) 40 mg PO DAILY [facility] Last Admin: 04/03/19 11:06 Dose: 40 mg Physical Examination Vital Signs: Vital Signs Period Temp Pulse Resp BP Sys/Rodas Pulse Ox Last 24 Hr 97.3 F-98.7 F 77-92 18-20 100-124/49-68 99-99 Constitutional: Yes: No Distress, Calm Eyes: Yes: EOM Intact, PERRL, Other (R horizontal nystagmus) Neck: Yes: Supple Cardiovascular: Yes: S1, S2 Respiratory: Yes: CTA Bilaterally Gastrointestinal: Yes: Normal Bowel Sounds, Soft Musculoskeletal: Yes: Muscle Weakness (RUE, RLE) Edema: No Peripheral Pulses WNL: Yes Integumentary: Yes: Tattoos Neurological: Yes: Alert, Oriented, Aphasia, Babinski positive (RLE), Cran Nerves II-XII Intact, Facial Droop (Flattened R nasolabial fold), Unsteady Gait (Hemiplegic gait). No: Ataxia (No dysdiachokinesia, no limb ataxia), No Loss of Sensation, LUE (5/5), LLE (5/5), RUE (2/5 hand filter press supervisor, 4-/5 bicep flexion, tricep 3+/5), RLE (4+/5) Psychiatric: Yes: Alert, Oriented CBCD WBC 8.6 K/mm3 (4.0-10.0) 04/04/19 07:15 RBC 3.84 M/mm3 (3.60-5.2) 04/04/19 07:15 Hgb 12.4 GM/dL (10.7-15.3) 04/04/19 07:15 Hct 36.1 % (32.4-45.2) 04/04/19 07:15 MCV 94.0 fl (80-96) 04/04/19 07:15 MCHC 34.5 g/dl (32.0-36.0) 04/04/19 07:15 RDW 12.2 % (11.6-15.6) 04/04/19 07:15 Plt Count 165 K/MM3 (134-434) 04/04/19 07:15 MPV 9.7 fl (7.5-11.1) 04/04/19 07:15 CMP Sodium 141 mmol/L (136-145) 04/04/19 07:15 Potassium 3.8 mmol/L (3.5-5.1) 04/04/19 07:15 Chloride 107 mmol/L (98-107) 04/04/19 07:15 Carbon Dioxide 25 mmol/L (21-32) 04/04/19 07:15 Anion Gap 9 MMOL/L (8-16) 04/04/19 07:15 BUN 12 mg/dL (7-18) 04/04/19 07:15 Creatinine 0.8 mg/dL (0.55-1.3) 04/04/19 07:15 Random Glucose 148 mg/dL (74-106) H 04/04/19 07:15 Calcium 9.3 mg/dL (8.5-10.1) 04/04/19 07:15 Total Bilirubin 0.7 mg/dL (0.2-1) 04/04/19 07:15 AST 10 U/L (15-37) L 04/04/19 07:15 ALT 25 U/L (13-61) 04/04/19 07:15 Alkaline Phosphatase 41 U/L (45-117) L 04/04/19 07:15 Total Protein 7.1 g/dl (6.4-8.2) 04/04/19 07:15 Albumin 3.9 g/dl (3.4-5.0) 04/04/19 07:15 Assessment/Plan 28 yo F with PMHx of MS (diagnosed 6 years ago, previously followed by Dr. Farah) , MDD, and HARLEY presenting with speech abnormality, and worsening R sided weakness. Pt noticed sudden speech difficulty about a month, with slurring of her speech and slowed mentation. No hx of trauma or falls. About 3 weeks ago, she noticed sudden numbness of her R hand, with eventual weakness of the right hand. She had no been on MS medication for 1.5 years because of flushing from Tecfidera which she had been on. Approximately one week ago, she noticed weakness of RLE with associated gait abnormality, difficulty with speech, RUE weakness. She presented to [facility] where she completed CT head which showed L periventricular lesion. She was not able to have MRI there because of piercings and therefore was sent to see me in the office a day later. I ordered MRI brain and C spine at the office which showed progression of MS plaque burden in brain, also plaques diffusely in C spine from C2-C6. She was started on Tecfidera immediately once labs completed last week and was seen by me in the office yesterday. Due to continued symptoms we discussed admission for IV steroids and she was in agreement. Plan would be for 3-5 days of steroids (to end Monday evening or Monday evening) depending on patient's course. Spoke to speech therapist yesterday, note reviewed. Patient may be a candidate for [facility] and she is interested in therapy. Discussed with nurse this AM to ask for case management assistance. No ill effects from steroids, is on PPI, RISS. Also spoke to resident yesterday about anxiety. Has remote h/o of abusing xanax 6 years ago for a month (resident reported this was confirmed by mother). She had a panic attack during barium swallow. Patient started on very low dose Klonipin , would try to avoid benzos as outpatient as much as possible but in agreement for use during inpatient stay which is stressful for her. Psych consulted, note reviewed, and recommended [facility], no objection to this.
[2019-04-04] MEDS: DOCUSATE SODIUM 100 MG CAPSULE (FP) PO SCH ×2 (09:32→21:45)
[2019-04-04] MEDS: ENOXAPARIN NA (PORCINE) 40 MG/0.4 ML DISP.SYRIN SQ SCH ×2 (09:32→09:36)
[2019-04-04] MEDS: DULoxetine HCL 20 MG CAPSULE.DR PO SCH (09:32)
[2019-04-04] MEDS: PANTOPRAZOLE 40 MG TABLET (FP) PO SCH (09:32)
[2019-04-04 10:28] LABS: ANISOCYTOSIS 0; MACROCYTOSIS 0; PLATELET ESTIMATE NORMAL
--- NOTE | 2019-04-04 12:22 | PN ---
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 Pt reports appreciating consult and Rx ordered. She is tired today but more calm, with improving LLE function. Reviewed compensatory swallowing rec based on MBS. Pt is an EXCELLENT candidate for acute rehabilitation- [facility]- for intensive PT/OT/Speech. Pt is very motivated to improve independence.
[2019-04-04] MEDS: clonazePAM 0.5 MG TABLET PO PRN ×2 (14:17→21:46)
[2019-04-04] MEDS ORDERED: PT OWN MED DRAWER 7, Y5N ONE (20:19)
[2019-04-04] MEDS ORDERED: INSULIN (NOVOLOG) ASPART 100 UNITS/ML 10ML VIAL ONE (21:38)
[2019-04-05] MEDS: methylPREDNISolone NA SUCC 125 MG/2 ML VIAL IVPB SCH ×4 (03:30→21:18)
[2019-04-05] MEDS: INSULIN SLIDING SCALE (NOVOLOG) 1 VIAL SQ SCH ×4 (06:57→21:19)
[2019-04-05 07:52] LABS: CALCIUM 9.1 mg/dL (8.5-10.1); CREATININE 0.8 mg/dL (0.55-1.3); POTASSIUM 4.4 mmol/L (3.5-5.1)
--- NOTE | 2019-04-05 09:13 | PN ---
Progress Note (short form) - Note Progress Note: Neurology Chief Complaint: Difficulty speaking, R sided weakness History of Present Illness: 28 yo F with PMHx of MS (diagnosed 6 years ago, previously followed by Dr. Farah) , MDD, and HARLEY presenting with speech abnormality, and worsening R sided weakness. Pt noticed sudden speech difficulty about a month, with slurring of her speech and slowed mentation. No hx of trauma or falls. About 3 weeks ago, she noticed sudden numbness of her R hand, with eventual weakness of the right hand. She had no been on MS medication for 1.5 years because of flushing from Tecfidera which she had been on. Approximately one week ago, she noticed weakness of RLE with associated gait abnormality, difficulty with speech, RUE weakness. [facility] head which showed L periventricular lesion. She was not able to have MRI there because of piercings and therefore was sent to see me in the office a day later. I ordered MRI brain and C spine at the office which showed progression of MS plaque burden in brain, also plaques diffusely in C spine from C2-C6. She was started on Tecfidera immediately once labs completed last week and was seen by me in the office yesterday. Due to continued symptoms we discussed admission for IV steroids and she was in agreement. Plan would be for 3-5 days of steroids (to end Monday evening or Monday evening) depending on patient's course. Today is day two and she reports some increase in RLE strength, roller bearing inspector of RUE seems the same but bicep flexion slightly improved. Spoke to speech therapist yesterday, note reviewed. Patient accepted to [facility] per notes and in agreement with therapy. No ill effects from steroids, is on PPI, RISS. Also spoke to resident yesterday about anxiety. Has remote h/o of abusing xanax 6 years ago for a month (resident reported this was confirmed by mother). She had a panic attack during barium swallow. Patient started on very low dose Klonipin, would try to avoid benzos as outpatient as much as possible but in agreement for use during inpatient stay which is stressful for her. Psych consulted, note reviewed, and recommended Cymbalta, no objection to this. Would not start provigil at this time. At rehab can continue low dose klonipin 0.5mg twice daily, after completing rehab can d/c klonipin and increase cymbalta to 30mg. Will continue steroids for 2 more days in hopes of optimization and improvement in function. Informed hosptialist. Home Medications - Allergies Allergies/Adverse Reactions: Allergies Allergy/AdvReac Type Severity Reaction Status Date / Time No Known Allergies Allergy Verified 01/11/16 20:46 - Home Medications Home Medications: Ambulatory Orders Dimethyl Fumarate [Tecfidera] 240 mg PO BID 01/11/16 Norethindrone-E.estradiol-Iron [Blisovi 24 Fe Tablet] 1 each PO DAILY 04/02/19 Active Medications Clonazepam (Klonopin -) 0.5 mg PO BID PRN PRN Reason: ANXIETY Last Admin: 04/04/19 21:46 Dose: 0.5 mg Docusate Sodium (Colace -) 100 mg PO BID [facility] Last Admin: 04/04/19 21:45 Dose: 100 mg Duloxetine HCl (Cymbalta -) 20 mg PO DAILY [facility] Last Admin: 04/04/19 09:32 Dose: 20 mg Enoxaparin Sodium (Lovenox -) 40 mg SQ DAILY [facility] Last Admin: 04/04/19 09:36 Dose: Not Given Insulin Aspart (Novolog Vial Sliding Scale -) 1 vial SQ [facility]; Protocol Last Admin: 04/05/19 06:57 Dose: Not Given Methylprednisolone Sodium Succinate (Solu-Medrol -) 250 mg IVPB Q6H-IV [facility] Last Admin: 04/05/19 03:30 Dose: 250 mg Pantoprazole Sodium (Protonix -) 40 mg PO DAILY [facility] Last Admin: 04/04/19 09:32 Dose: 40 mg Physical Examination Vital Signs Period Temp Pulse Resp BP Sys/Rodas Pulse Ox Last 24 Hr 97.3 F-98.2 F 61-113 20-20 110-130/60-79 99 Constitutional: Yes: No Distress, Calm Eyes: Yes: EOM Intact, PERRL, Other (R horizontal nystagmus) Neck: Yes: Supple Cardiovascular: Yes: S1, S2 Respiratory: Yes: CTA Bilaterally Gastrointestinal: Yes: Normal Bowel Sounds, Soft Musculoskeletal: Yes: Muscle Weakness (RUE, RLE) Edema: No Peripheral Pulses WNL: Yes Integumentary: Yes: Tattoos Neurological: Yes: Alert, Oriented, Aphasia, Babinski positive (RLE), Cran Nerves II-XII Intact, Facial Droop (Flattened R nasolabial fold), Unsteady Gait (Hemiplegic gait). No: Ataxia (No dysdiachokinesia, no limb ataxia), No Loss of Sensation, LUE (5/5), LLE (5/5), RUE (2/5 hand roller bearing inspector, 4-/5 bicep flexion, tricep 3+/5), RLE (4+/5) Psychiatric: Yes: Alert, Oriented CBCD WBC 8.6 K/mm3 (4.0-10.0) 04/04/19 07:15 RBC 3.84 M/mm3 (3.60-5.2) 04/04/19 07:15 Hgb 12.4 GM/dL (10.7-15.3) 04/04/19 07:15 Hct 36.1 % (32.4-45.2) 04/04/19 07:15 MCV 94.0 fl (80-96) 04/04/19 07:15 MCHC 34.5 g/dl (32.0-36.0) 04/04/19 07:15 RDW 12.2 % (11.6-15.6) 04/04/19 07:15 Plt Count 165 K/MM3 (134-434) 04/04/19 07:15 MPV 9.7 fl (7.5-11.1) 04/04/19 07:15 CMP Sodium 140 mmol/L (136-145) 04/05/19 06:12 Potassium 4.4 mmol/L (3.5-5.1) 04/05/19 06:12 Chloride 104 mmol/L (98-107) 04/05/19 06:12 Carbon Dioxide 28 mmol/L (21-32) 04/05/19 06:12 Anion Gap 7 MMOL/L (8-16) L 04/05/19 06:12 BUN 17 mg/dL (7-18) 04/05/19 06:12 Creatinine 0.8 mg/dL (0.55-1.3) 04/05/19 06:12 Random Glucose 121 mg/dL (74-106) H 04/05/19 06:12 Calcium 9.1 mg/dL (8.5-10.1) 04/05/19 06:12 Total Bilirubin 0.7 mg/dL (0.2-1) 04/04/19 07:15 AST 10 U/L (15-37) L 04/04/19 07:15 ALT 25 U/L (13-61) 04/04/19 07:15 Alkaline Phosphatase 41 U/L (45-117) L 04/04/19 07:15 Total Protein 7.1 g/dl (6.4-8.2) 04/04/19 07:15 Albumin 3.9 g/dl (3.4-5.0) 04/04/19 07:15 Assessment/Plan 28 yo F with PMHx of MS (diagnosed 6 years ago, previously followed by Dr. Farah) , MDD, and HARLEY presenting with speech abnormality, and worsening R sided weakness. Pt noticed sudden speech difficulty about a month, with slurring of her speech and slowed mentation. No hx of trauma or falls. About 3 weeks ago, she noticed sudden numbness of her R hand, with eventual weakness of the right hand. She had no been on MS medication for 1.5 years because of flushing from Tecfidera which she had been on. Approximately one week ago, she noticed weakness of RLE with associated gait abnormality, difficulty with speech, RUE weakness. She presented to [facility] where she completed CT head which showed L periventricular lesion. She was not able to have MRI there because of piercings and therefore was sent to see me in the office a day later. I ordered MRI brain and C spine at the office which showed progression of MS plaque burden in brain, also plaques diffusely in C spine from C2-C6. She was started on Tecfidera immediately once labs completed last week and was seen by me in the office yesterday. Due to continued symptoms we discussed admission for IV steroids and she was in agreement. Plan would be for 3-5 days of steroids (to end Monday evening or Monday evening) depending on patient's course. Today is day two and she reports some increase in RLE strength, roller bearing inspector of RUE seems the same but bicep flexion slightly improved. Spoke to speech therapist yesterday, note reviewed. Patient accepted to [facility] per notes and in agreement with therapy. No ill effects from steroids, is on PPI, RISS. Also spoke to resident yesterday about anxiety. Has remote h/o of abusing xanax 6 years ago for a month (resident reported this was confirmed by mother). She had a panic attack during barium swallow. Patient started on very low dose Klonipin, would try to avoid benzos as outpatient as much as possible but in agreement for use during inpatient stay which is stressful for her. Psych consulted, note reviewed, and recommended Cymbalta, no objection to this. Would not start provigil at this time. At rehab can continue low dose klonipin 0.5mg twice daily, after completing rehab can d/c klonipin and increase cymbalta to 30mg. Will continue steroids for 2 more days in hopes of optimization and improvement in function. Informed hosptialist. Patient in agreement.
[2019-04-05] MEDS: PANTOPRAZOLE 40 MG TABLET (FP) PO SCH (09:24)
[2019-04-05] MEDS: ENOXAPARIN NA (PORCINE) 40 MG/0.4 ML DISP.SYRIN SQ SCH (09:24)
[2019-04-05] MEDS: DOCUSATE SODIUM 100 MG CAPSULE (FP) PO SCH ×2 (09:24→21:18)
[2019-04-05] MEDS: DULoxetine HCL 20 MG CAPSULE.DR PO SCH (09:24)
[2019-04-05] MEDS: clonazePAM 0.5 MG TABLET PO PRN ×2 (09:31→21:18)
--- NOTE | 2019-04-05 10:52 | PN ---
Progress Note, CHEMICAL SALES REPRESENTATIVE - Note Progress Note: Selected Entries 04/04/19 04/04/19 04/04/19 02:00 06:00 10:00 Breakfast Lunch Supper Temperature 97.9 F 97.8 F 98.1 F 04/04/19 04/04/19 04/04/19 14:16 14:57 18:22 Breakfast 100% Lunch 100% Supper 75% Temperature 98.2 F 97.3 F L 04/05/19 06:00 Breakfast Lunch Supper Temperature 98.0 F Laboratory Tests 04/04/19 07:15 WBC 8.6 Pt requested Clonopin this am with reported good affect. Pt tolerating diet without difficulty. Per EMR, [facility] accepted pt pending auth and dc of iv solumedrol. Pt is an EXCELLENT candidate for acute rehab. Pt is right hand dominant. She no longer can use her RUE functionally. She was able to before admission, and it is improving but she needs skilled OT for improved strength and function. She is a young woman, cognitively good, motivated, previously working. acute rehab is neccessary for this brave young woman to return to the work force and function as independently as possible.
--- NOTE | 2019-04-05 13:33 | PN ---
Physical Exam: SUBJECTIVE: Patient seen and examined, overall symptoms unchanged from yesterday. OBJECTIVE: Vital Signs Period Temp Pulse Resp BP Sys/Rodas Pulse Ox Last 24 Hr 97.3 F-98.2 F 61-100 20-20 118-130/60-79 99 Intake & Output 04/02/19 04/03/19 04/04/19 04/05/19 23:59 23:59 23:59 23:59 Intake Total 240 1455 1515 620 Balance 240 1455 1515 620 Weight 162 lb 1.6 oz GENERAL: The patient is awake, alert, and fully oriented, in no acute distress. HEAD: Normal with no signs of trauma. EYES: PERRL, extraocular movements intact, sclera anicteric, conjunctiva clear. No ptosis. ENT: Ears normal, nares patent, oropharynx clear without exudates, moist mucous membranes. NECK: Trachea midline, full range of motion, supple. LUNGS: Breath sounds equal, clear to auscultation bilaterally, no wheezes, no crackles, no accessory muscle use. HEART: Regular rate and rhythm, S1, S2 ABDOMEN: Soft, nontender, nondistended, normoactive bowel sounds, no guarding, no rebound, no hepatosplenomegaly, no masses. EXTREMITIES: 2+ pulses, warm, well-perfused, no edema. Neuro: AAOX3, slurred speech, RUE hand water chemist 2-3/5, RLE 4/5, LUE/LLE 5/5 PSYCH: Normal mood, normal affect. SKIN: Warm, dry, normal turgor, no rashes or lesions noted Laboratory Results - last 24 hr 04/04/19 04/04/19 04/05/19 17:15 21:48 06:12 Sodium 140 Potassium 4.4 Chloride 104 Carbon Dioxide 28 Anion Gap 7 L BUN 17 Creatinine 0.8 Est GFR (CKD-EPI)AfAm 117.10 Est GFR (CKD-EPI)NonAf 101.04 POC Glucometer 189 150 Random Glucose 121 H Calcium 9.1 04/05/19 04/05/19 06:56 11:44 Sodium Potassium Chloride Carbon Dioxide Anion Gap BUN Creatinine Est GFR (CKD-EPI)AfAm Est GFR (CKD-EPI)NonAf POC Glucometer 135 109 Random Glucose Calcium Active Medications Generic Name Dose Route Start Last Admin Trade Name Freq PRN Reason Stop Dose Admin Clonazepam 0.5 mg 04/03/19 14:41 04/05/19 09:31 Klonopin - PO 0.5 mg BID PRN Administration ANXIETY Docusate Sodium 100 mg 04/03/19 22:00 04/05/19 09:24 Colace - PO 100 mg BID ZAY Administration Duloxetine HCl 20 mg 04/04/19 10:00 04/05/19 09:24 Cymbalta - PO 20 mg DAILY ZAY Administration Enoxaparin Sodium 40 mg 04/03/19 10:00 04/05/19 09:24 Lovenox - SQ Not Given DAILY ZAY Insulin Aspart 1 vial 04/03/19 07:00 04/05/19 11:54 Novolog Vial Sliding Scale - SQ Not Given ACHS [facility] Protocol Methylprednisolone Sodium Succinate 250 mg 04/03/19 03:45 04/05/19 09:22 Solu-Medrol - IVPB 250 mg Q6H-IV ZAY Administration Pantoprazole Sodium 40 mg 04/03/19 10:00 04/05/19 09:24 Protonix - PO 40 mg DAILY ZAY Administration ASSESSMENT/PLAN: 28 yof with PMhx of MS, MDD, HARLEY, sent by neurologist for Right sided weakness and slurred speech progressive over 1 month and MRI brain consistent with worsening demyelinating lesions, for pulse dose steroids -Multiple sclerosis flare -Generalized anxiety disorder -MDD Plan: Neurology input noted. Symptoms improved Solumedrol IV 5 days as discussed with Dr. Harrell. Recently resumed on Tecfidera outpatient Psychiatry input noted. Continue cymbalta. Discussed with neurology, hold off on provigil for now. ISS while on steroids PT eval noted, rec Dial. DVTPPX lovenox Dispo aim for Dial dc Monday evening after IV steroids if disposition arranged. Plan discussed with patient and nursing, all questions answered. Social work updated. Visit type - Emergency Visit Emergency Visit: Yes ED Registration Date: 04/02/19 Care time: The patient presented to the Emergency Department on the above date and was hospitalized for further evaluation of their emergent condition. - New Patient This patient is new to me today: No - Critical Care Critical Care patient: No - Discharge Referral Referred to [facility] Med P.C.: No
[2019-04-05] MEDS ORDERED: INSULIN (NOVOLOG) ASPART 100 UNITS/ML 10ML VIAL ONE (21:10)
[2019-04-06] MEDS: methylPREDNISolone NA SUCC 125 MG/2 ML VIAL IVPB SCH ×4 (03:35→21:19)
[2019-04-06] MEDS: INSULIN SLIDING SCALE (NOVOLOG) 1 VIAL SQ SCH ×4 (06:37→21:26)
[2019-04-06] MEDS ORDERED: INSULIN (NOVOLOG) ASPART 100 UNITS/ML 10ML VIAL ONE (06:44)
[2019-04-06] MEDS ORDERED: INSULIN (LEVEMIR) 100 UNITS/ML UNITS SQ ONE (06:45)
[2019-04-06] MEDS ORDERED: PT OWN MED DRAWER 7, Y5N ONE (06:45)
[2019-04-06] MEDS: DULoxetine HCL 20 MG CAPSULE.DR PO SCH (09:17)
[2019-04-06] MEDS: PANTOPRAZOLE 40 MG TABLET (FP) PO SCH (09:17)
[2019-04-06] MEDS: DOCUSATE SODIUM 100 MG CAPSULE (FP) PO SCH ×2 (09:17→21:19)
[2019-04-06] MEDS: ENOXAPARIN NA (PORCINE) 40 MG/0.4 ML DISP.SYRIN SQ SCH ×2 (09:17→09:23)
--- NOTE | 2019-04-06 14:32 | PN ---
Physical Exam: SUBJECTIVE: Patient seen and examined, overall unchanged from yesterday. OBJECTIVE: Vital Signs Period Temp Pulse Resp BP Sys/Rodas Pulse Ox Last 24 Hr 97.6 F-98.2 F 43-70 20-20 117-136/67-82 99 Intake & Output 04/03/19 04/04/19 04/05/19 04/06/19 23:59 23:59 23:59 23:59 Intake Total 1455 1515 1870 750 Balance 1455 1515 1870 750 GENERAL: The patient is awake, alert, and fully oriented, in no acute distress. HEAD: Normal with no signs of trauma. EYES: PERRL, extraocular movements intact, sclera anicteric, conjunctiva clear. No ptosis. ENT: Ears normal, nares patent, oropharynx clear without exudates, moist mucous membranes. NECK: Trachea midline, full range of motion, supple. LUNGS: Breath sounds equal, clear to auscultation bilaterally, no wheezes, no crackles, no accessory muscle use. HEART: Regular rate and rhythm, S1, S2 without murmur, rub or gallop. ABDOMEN: Soft, nontender, nondistended, normoactive bowel sounds, no guarding, no rebound, no hepatosplenomegaly, no masses. EXTREMITIES: 2+ pulses, warm, well-perfused, no edema. NEUROLOGICAL: Cranial nerves II through XII grossly intact. Normal speech, gait not observed. PSYCH: Normal mood, normal affect. SKIN: Warm, dry, normal turgor, no rashes or lesions noted Laboratory Results - last 24 hr 04/05/19 04/05/19 04/06/19 16:52 21:16 06:36 POC Glucometer 152 189 140 04/06/19 12:38 POC Glucometer 124 Active Medications Generic Name Dose Route Start Last Admin Trade Name Freq PRN Reason Stop Dose Admin Clonazepam 0.5 mg 04/03/19 14:41 04/05/19 21:18 Klonopin - PO 0.5 mg BID PRN Administration ANXIETY Docusate Sodium 100 mg 04/03/19 22:00 04/06/19 09:17 Colace - PO 100 mg BID ZAY Administration Duloxetine HCl 20 mg 04/04/19 10:00 04/06/19 09:17 Cymbalta - PO 20 mg DAILY ZAY Administration Enoxaparin Sodium 40 mg 04/03/19 10:00 04/06/19 09:23 Lovenox - SQ Not Given DAILY ZAY Insulin Aspart 1 vial 04/03/19 07:00 04/06/19 12:48 Novolog Vial Sliding Scale - SQ Not Given ACHS [facility] Protocol Methylprednisolone Sodium Succinate 250 mg 04/03/19 03:45 04/06/19 09:17 Solu-Medrol - IVPB 250 mg Q6H-IV ZAY Administration Pantoprazole Sodium 40 mg 04/03/19 10:00 04/06/19 09:17 Protonix - PO 40 mg DAILY ZAY Administration ASSESSMENT/PLAN: 28 yof with PMhx of MS, MDD, HARLEY, sent by neurologist for Right sided weakness and slurred speech progressive over 1 month and MRI brain consistent with worsening demyelinating lesions, for pulse dose steroids -Multiple sclerosis flare -Generalized anxiety disorder -MDD Plan: Neurology input noted. Symptoms improved Solumedrol IV 5 days as discussed with Dr. Harrell. Recently resumed on Tecfidera outpatient Psychiatry input noted. Continue cymbalta. Discussed with neurology, hold off on provigil for now. ISS while on steroids PT eval noted, rec Dial. DVTPPX lovenox Dispo aim for Dial in 24 hours after IV steroids if disposition arranged. Plan discussed with patient and nursing, all questions answered. CM updated. Visit type - Emergency Visit Emergency Visit: Yes ED Registration Date: 04/02/19 Care time: The patient presented to the Emergency Department on the above date and was hospitalized for further evaluation of their emergent condition. - New Patient This patient is new to me today: No - Critical Care Critical Care patient: No - Discharge Referral Referred to [facility] Med P.C.: No
[2019-04-07] MEDS: methylPREDNISolone NA SUCC 125 MG/2 ML VIAL IVPB SCH ×4 (03:51→21:18)
[2019-04-07] MEDS: INSULIN SLIDING SCALE (NOVOLOG) 1 VIAL SQ SCH ×4 (06:09→21:19)
[2019-04-07] MEDS: DOCUSATE SODIUM 100 MG CAPSULE (FP) PO SCH ×2 (09:21→21:18)
[2019-04-07] MEDS: ENOXAPARIN NA (PORCINE) 40 MG/0.4 ML DISP.SYRIN SQ SCH (09:21)
[2019-04-07] MEDS: PANTOPRAZOLE 40 MG TABLET (FP) PO SCH (09:21)
[2019-04-07] MEDS: DULoxetine HCL 20 MG CAPSULE.DR PO SCH (09:21)
--- NOTE | 2019-04-07 09:50 | PN ---
Physical Exam: SUBJECTIVE: Patient seen and examined, symptoms improving, no new complaints. OBJECTIVE: Vital Signs Period Temp Pulse Resp BP Sys/Rodas Pulse Ox Last 24 Hr 97.6 F-98.4 F 43-55 18-20 121-132/69-82 99 General: sitting in bed in no acute distress Neck: soft, supple, no JVD Chest: CTAB, no rales or wheezing CVS:S1S2 regular abdomen:soft, NT, nD Extremities: no edema neuro: AAOx3, speech improved, RLE 4/5, RUE 3/5, improved exam from yesterday, otherwise unchanged Psych: anxious but appropriate Laboratory Results - last 24 hr 04/06/19 04/06/19 04/06/19 12:38 17:23 21:22 POC Glucometer 124 154 171 04/07/19 05:43 POC Glucometer 120 Active Medications Generic Name Dose Route Start Last Admin Trade Name Freq PRN Reason Stop Dose Admin Docusate Sodium 100 mg 04/03/19 22:00 04/07/19 09:21 Colace - PO 100 mg BID ZAY Administration Duloxetine HCl 20 mg 04/04/19 10:00 04/07/19 09:21 Cymbalta - PO 20 mg DAILY ZAY Administration Enoxaparin Sodium 40 mg 04/03/19 10:00 04/07/19 09:21 Lovenox - SQ Not Given DAILY ZAY Insulin Aspart 1 vial 04/03/19 07:00 04/07/19 06:09 Novolog Vial Sliding Scale - SQ Not Given ACHS [facility] Protocol Methylprednisolone Sodium Succinate 250 mg 04/03/19 03:45 04/07/19 09:04 Solu-Medrol - IVPB 250 mg Q6H-IV ZAY Administration Pantoprazole Sodium 40 mg 04/03/19 10:00 04/07/19 09:21 Protonix - PO 40 mg DAILY ZAY Administration ASSESSMENT/PLAN: 28 yof with PMhx of MS, MDD, HARLEY, sent by neurologist for Right sided weakness and slurred speech progressive over 1 month and MRI brain consistent with worsening demyelinating lesions, for pulse dose steroids -Multiple sclerosis flare -Generalized anxiety disorder -MDD Plan: Neurology input noted. Symptoms improved Solumedrol IV 5 days as discussed with Dr. Harrell. Recently resumed on Tecfidera outpatient Psychiatry input noted. Continue cymbalta. Discussed with neurology, hold off on provigil for now. ISS while on steroids PT eval noted, rec Dial. DVTPPX lovenox Dispo aim for Dial in 24 hours after IV steroids if disposition arranged. Plan discussed with patient and nursing, all questions answered. CM updated. Visit type - Emergency Visit Emergency Visit: Yes ED Registration Date: 04/02/19 Care time: The patient presented to the Emergency Department on the above date and was hospitalized for further evaluation of their emergent condition. - New Patient This patient is new to me today: No - Critical Care Critical Care patient: No - Discharge Referral Referred to [facility] Med P.C.: No
[2019-04-07] MEDS ORDERED: INSULIN (NOVOLOG) ASPART 100 UNITS/ML 10ML VIAL ONE (21:10)
[2019-04-08] MEDS: methylPREDNISolone NA SUCC 125 MG/2 ML VIAL IVPB SCH ×2 (03:04→09:22)
[2019-04-08] MEDS: INSULIN SLIDING SCALE (NOVOLOG) 1 VIAL SQ SCH ×3 (06:36→16:13)
--- NOTE | 2019-04-08 08:48 | PN ---
Progress Note (short form) - Note Progress Note: Neurology Chief Complaint: Difficulty speaking, R sided weakness History of Present Illness: 28 yo F with PMHx of MS (diagnosed 6 years ago, previously followed by Dr. Farah) , MDD, and HARLEY presenting with speech abnormality, and worsening R sided weakness. Pt noticed sudden speech difficulty about a month, with slurring of her speech and slowed mentation. No hx of trauma or falls. About 3 weeks ago, she noticed sudden numbness of her R hand, with eventual weakness of the right hand. She had no been on MS medication for 1.5 years because of flushing from Tecfidera which she had been on. Approximately one week ago, she noticed weakness of RLE with associated gait abnormality, difficulty with speech, RUE weakness. She presented to [facility] where she completed CT head which showed L periventricular lesion. She was not able to have MRI there because of piercings and therefore was sent to see me in the office a day later. I ordered MRI brain and C spine at the office which showed progression of MS plaque burden in brain, also plaques diffusely in C spine from C2-C6. Due to continued symptoms we discussed admission for IV steroids and she was in agreement. 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 She had a panic attack during barium swallow. Patient started on very low dose Klonipin, would try to avoid benzos as outpatient as much as possible but in agreement for use during inpatient stay which is stressful for her. Psych consulted, note reviewed, and recommended Cymbalta, patient felt it made her "foggy", patient would like to discontinue. At rehab can continue low dose klonipin 0.5mg twice daily. IV steroid 5 day course completed and patient planned for [facility] rehab. Discussed with resident, can give Prednisone Po taper 50, 40, 30, 20, 10. 3 days each. Can give PPI for that duration as well. Should continue Tecfidera as outpatient. RUE still limited movement, speech remains slow, LE strength improved. Home Medications - Allergies Allergies/Adverse Reactions: Allergies Allergy/AdvReac Type Severity Reaction Status Date / Time No Known Allergies Allergy Verified 01/11/16 20:46 - Home Medications Home Medications: Ambulatory Orders Dimethyl Fumarate [Tecfidera] 240 mg PO BID 01/11/16 Norethindrone-E.estradiol-Iron [Blisovi 24 Fe Tablet] 1 each PO DAILY 04/02/19 Active Medications Docusate Sodium (Colace -) 100 mg PO BID [facility] Last Admin: 04/07/19 21:18 Dose: 100 mg Duloxetine HCl (Cymbalta -) 20 mg PO DAILY [facility] Last Admin: 04/07/19 09:21 Dose: 20 mg Enoxaparin Sodium (Lovenox -) 40 mg SQ DAILY [facility] Last Admin: 04/07/19 09:21 Dose: Not Given Insulin Aspart (Novolog Vial Sliding Scale -) 1 vial SQ [facility]; Protocol Last Admin: 04/08/19 06:36 Dose: Not Given Methylprednisolone Sodium Succinate (Solu-Medrol -) 250 mg IVPB Q6H-IV [facility] Last Admin: 04/08/19 03:04 Dose: 250 mg Pantoprazole Sodium (Protonix -) 40 mg PO DAILY [facility] Last Admin: 04/07/19 09:21 Dose: 40 mg Physical Examination Vital Signs Period Temp Pulse Resp BP Sys/Rodas Pulse Ox Last 24 Hr 97.7 F-98.1 F 41-50 18-19 112-139/57-83 99-99 Constitutional: Yes: No Distress, Calm Eyes: Yes: EOM Intact, PERRL, Other (R horizontal nystagmus) Neck: Yes: Supple Cardiovascular: Yes: S1, S2 Respiratory: Yes: CTA Bilaterally Gastrointestinal: Yes: Normal Bowel Sounds, Soft Musculoskeletal: Yes: Muscle Weakness (RUE, RLE) Edema: No Peripheral Pulses WNL: Yes Integumentary: Yes: Tattoos Neurological: Yes: Alert, Oriented, Aphasia, Babinski positive (RLE), Cran Nerves II-XII Intact, Facial Droop (Flattened R nasolabial fold), Unsteady Gait (Hemiplegic gait). No: Ataxia (No dysdiachokinesia, no limb ataxia), No Loss of Sensation, LUE (5/5), LLE (5/5), RUE (2/5 hand residence director, 4-/5 bicep flexion, tricep 3+/5), RLE (5-/5) Psychiatric: Yes: Alert, Oriented CBCD WBC 8.6 K/mm3 (4.0-10.0) 04/04/19 07:15 RBC 3.84 M/mm3 (3.60-5.2) 04/04/19 07:15 Hgb 12.4 GM/dL (10.7-15.3) 04/04/19 07:15 Hct 36.1 % (32.4-45.2) 04/04/19 07:15 MCV 94.0 fl (80-96) 04/04/19 07:15 MCHC 34.5 g/dl (32.0-36.0) 04/04/19 07:15 RDW 12.2 % (11.6-15.6) 04/04/19 07:15 Plt Count 165 K/MM3 (134-434) 04/04/19 07:15 MPV 9.7 fl (7.5-11.1) 04/04/19 07:15 CMP Sodium 140 mmol/L (136-145) 04/05/19 06:12 Potassium 4.4 mmol/L (3.5-5.1) 04/05/19 06:12 Chloride 104 mmol/L (98-107) 04/05/19 06:12 Carbon Dioxide 28 mmol/L (21-32) 04/05/19 06:12 Anion Gap 7 MMOL/L (8-16) L 04/05/19 06:12 BUN 17 mg/dL (7-18) 04/05/19 06:12 Creatinine 0.8 mg/dL (0.55-1.3) 04/05/19 06:12 Random Glucose 121 mg/dL (74-106) H 04/05/19 06:12 Calcium 9.1 mg/dL (8.5-10.1) 04/05/19 06:12 Total Bilirubin 0.7 mg/dL (0.2-1) 04/04/19 07:15 AST 10 U/L (15-37) L 04/04/19 07:15 ALT 25 U/L (13-61) 04/04/19 07:15 Alkaline Phosphatase 41 U/L (45-117) L 04/04/19 07:15 Total Protein 7.1 g/dl (6.4-8.2) 04/04/19 07:15 Albumin 3.9 g/dl (3.4-5.0) 04/04/19 07:15 Assessment/Plan 28 yo F with PMHx of MS (diagnosed 6 years ago, previously followed by Dr. Farah) , MDD, and HARLEY presenting with speech abnormality, and worsening R sided weakness. Pt noticed sudden speech difficulty about a month, with slurring of her speech and slowed mentation. No hx of trauma or falls. About 3 weeks ago, she noticed sudden numbness of her R hand, with eventual weakness of the right hand. She had no been on MS medication for 1.5 years because of flushing from Tecfidera which she had been on. Approximately one week ago, she noticed weakness of RLE with associated gait abnormality, difficulty with speech, RUE weakness. She presented to [facility] where she completed CT head which showed L periventricular lesion. She was not able to have MRI there because of piercings and therefore was sent to see me in the office a day later. I ordered MRI brain and C spine at the office which showed progression of MS plaque burden in brain, also plaques diffusely in C spine from C2-C6. Due to continued symptoms we discussed admission for IV steroids and she was in agreement. 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 She had a panic attack during barium swallow. Patient started on very low dose Klonipin, would try to avoid benzos as outpatient as much as possible but in agreement for use during inpatient stay which is stressful for her. Psych consulted, note reviewed, and recommended Cymbalta, patient felt it made her "foggy", patient would like to discontinue. At rehab can continue low dose klonipin 0.5mg twice daily. IV steroid 5 day course completed and patient planned for [facility] rehab. Discussed with resident, can give Prednisone Po taper 50, 40, 30, 20, 10. 3 days each. Can give PPI for that duration as well. Should continue Tecfidera as outpatient. RUE still limited movement, speech remains slow, LE strength improved.
--- NOTE | 2019-04-08 08:50 | DS ---
Physical Exam: SUBJECTIVE: Patient seen and examined OBJECTIVE: Vital Signs Period Temp Pulse Resp BP Sys/Rodas Pulse Ox Last 24 Hr 97.7 F-98.1 F 41-50 18-19 112-139/57-83 99-99 PHYSICAL EXAM GENERAL: The patient is awake, alert, and fully oriented, in no acute distress. HEAD: Normal with no signs of trauma. EYES: PERRL, extraocular movements intact, sclera anicteric, conjunctiva clear. ENT: Ears normal, nares patent, oropharynx clear without exudates, moist mucous membranes. NECK: Trachea midline, full range of motion, supple. LUNGS: Breath sounds equal, clear to auscultation bilaterally, no wheezes, no crackles, no accessory muscle use. HEART: Regular rate and rhythm, S1, S2 without murmur, rub or gallop. ABDOMEN: Soft, nontender, nondistended, normoactive bowel sounds, no guarding, no rebound, no hepatosplenomegaly, no masses. EXTREMITIES: 2+ pulses, warm, well-perfused, no edema. NEUROLOGICAL: Cranial nerves II through XII grossly intact. Normal speech, gait not observed. PSYCH: Normal mood, normal affect. SKIN: Warm, dry, normal turgor, no rashes or lesions noted. LABS Laboratory Results - last 24 hr 04/07/19 04/07/19 04/07/19 12:58 17:24 21:17 POC Glucometer 207 205 143 04/08/19 05:56 POC Glucometer 140 HOSPITAL COURSE: Date of Admission:04/02/19 Date of Discharge: 04/08/19 Discharge Summary Reason For Visit: MULTIPLE SCLEROSIS Current Active Problems Anxiety disorder (Acute) Major depression (Acute) Multiple sclerosis (Acute) Condition: Stable - Instructions Diet, Activity, Other Instructions: You were admitted to the hospital to receive IV steroids for your MS flare. You have completed a day course with improvement of strength in you right arm and leg. You will require rehab in order to improve further. *Please take the following Prednisone taper in decreasing doses: Prednisone 50 mg for 3 days then Prednisone 40 mg for 3 days then Prednisone 30 mg for 3 days then Prednisone 20 mg for 3 days then Prednisone 10 mg for 3 days *Resume Tecfidera in rehab You were given Klonopin low does 0.5 mg as needed in the hospital due to panic attacks. You were evaluated by psychiatry and started on Cymbalta. The rehab physician may chose to prescribe you low dose Knolopin if needed, however due to your history of benzodiasepine abuse 6 years, Klonopin and other benzodiasepines should be avoided if possible. *Continue Cymbalta in rehab and increase the dose to 30 mg daily once out of rehab Follow up with Dr Harrell neurology and Dr Mitchell psychiatry once out of rehab. Return to hospital if sever symptoms recur. Referrals: Jamin Harrell MD [Staff Physician] - Jessi Mitchell MD [Staff Physician] - Disposition: [facility] - Home Medications Comprehensive Discharge Medication List: Ambulatory Orders Dimethyl Fumarate [Tecfidera] 240 mg PO BID 01/11/16 Norethindrone-E.estradiol-Iron [Blisovi 24 Fe Tablet] 1 each PO DAILY 04/02/19 Duloxetine HCl [Cymbalta -] 20 mg PO DAILY capsule. 04/08/19 Prednisone 10 mg PO DAILY #45 tablet 04/08/19 Problem List - Problems (1) Major depression Code(s): F32.9 - MAJOR DEPRESSIVE DISORDER, SINGLE EPISODE, UNSPECIFIED (2) Anxiety disorder Code(s): F41.9 - ANXIETY DISORDER, UNSPECIFIED (3) Multiple sclerosis Code(s): G35 - MULTIPLE SCLEROSIS - Discharge Referral Referred to [facility] Med P.C.: No
[2019-04-08] MEDS: PANTOPRAZOLE 40 MG TABLET (FP) PO SCH (09:06)
[2019-04-08] MEDS: DOCUSATE SODIUM 100 MG CAPSULE (FP) PO SCH ×2 (09:06→21:45)
[2019-04-08] MEDS: ENOXAPARIN NA (PORCINE) 40 MG/0.4 ML DISP.SYRIN SQ SCH (09:07)
[2019-04-08] MEDS ORDERED: predniSONE 20 MG TABLET (UD) PO ONE (09:30)
--- NOTE | 2019-04-08 09:37 | PN ---
Teaching Attending Note Name of Resident: Flory Hall ATTENDING PHYSICIAN STATEMENT I saw and evaluated the patient. I reviewed the resident's note and discussed the case with the resident. I agree with the resident's findings and plan as documented with exceptions below. SUBJECTIVE: Patient seen and examined. Overall unchanged from yesterday, no new complaints. OBJECTIVE: Vital Signs Period Temp Pulse Resp BP Sys/Rodas Pulse Ox Last 24 Hr 97.7 F-98.1 F 41-50 18-19 112-139/57-83 99 Intake & Output 04/05/19 04/06/19 04/07/19 04/08/19 23:59 23:59 23:59 23:59 Intake Total 1870 1800 1800 100 Balance 1870 1800 1800 100 General: sitting in bed in no acute distress Neck: soft, supple, no JVD Chest: CTAB, no rales or wheezing CVS:S1S2 regular abdomen:soft, NT, nD Extremities: no edema neuro: AAOx3, speech improved, RLE 4/5, RUE 3/5, overall unchanged Psych: anxious but appropriate ASSESSMENT AND PLAN: 28 yof with PMhx of MS, MDD, HARLEY, sent by neurologist for Right sided weakness and slurred speech progressive over 1 month and MRI brain consistent with worsening demyelinating lesions, for pulse dose steroids -Multiple sclerosis flare -Generalized anxiety disorder -MDD Plan: Neurology input noted. Symptoms improved s/p 5 days of solumedrol. Prednisone 50 mg with rapid taper. Recently resumed on Tecfidera outpatient Psychiatry input noted. Continue cymbalta. Discussed with neurology, hold off on provigil for now. ISS while on steroids PT eval noted, rec [facility], await authorization. DVTPPX lovenox Dispo [facility] vs home with PT pending approval Plan discussed with patient and nursing, all questions answered. Social work updated.
--- NOTE | 2019-04-08 11:32 | EKG ---
Test Reason : Blood Pressure : / mmHG Vent. Rate : 045 BPM Atrial Rate : 045 BPM P-R Int : 142 ms QRS Dur : 088 ms QT Int : 436 ms P-R-T Axes : 061 045 029 degrees QTc Int : 377 ms SINUS BRADYCARDIA OTHERWISE NORMAL ECG WHEN COMPARED WITH ECG OF 02-APR-2019 18:13, VENT. RATE HAS DECREASED BY 42 BPM Confirmed by CHARISSA RODRIGUEZ MD ([id number]) on 04/08/2019 11:32:32 AM Referred By: Confirmed By:CHARISSA RODRIGUEZ MD
[2019-04-08] MEDS ORDERED: PT OWN MED DRAWER 7, Y5N ONE (12:15)
--- NOTE | 2019-04-08 12:58 | PN ---
Progress Note, [employer] - Note Progress Note: Selected Entries 04/07/19 04/07/19 04/07/19 02:00 06:00 10:00 Breakfast Diet Tolerated Supper Temperature 98.3 F 98.4 F 97.7 F 04/07/19 04/08/19 04/08/19 18:34 02:00 06:00 Breakfast Diet Tolerated Well Supper 100% Temperature 98.0 F 98.1 F 97.7 F 04/08/19 04/08/19 09:43 10:00 Breakfast 50% Diet Tolerated Well Supper Temperature 97.2 F L Speech is improving slightly, still slow, scanning. Right UE still weak although improving with limitations for ADL in this 28 yo RH dominant woman. Pt is less anxious and is no longer taking Cymbalta as she felt to was too tired and not thinking as well on it. Pending Acute rehab placement for improved ADL function and communication.
--- NOTE | 2019-04-08 18:46 | PN ---
Physical Exam: SUBJECTIVE: Patient seen and examined resting in bed nad, no acute events, afebrile hemodynamically stable. states her RUE, RLE weakness is improving. has been taking klonopin once a day. states cymbalta made her foggy OBJECTIVE: Vital Signs Period Temp Pulse Resp BP Sys/Rodas Pulse Ox Last 24 Hr 97.2 F-98.1 F 41-84 18-20 112-135/58-86 99-99 GENERAL: The patient is awake, alert, and fully oriented, in no acute distress. HEAD: Normal with no signs of trauma. EYES: PERRL, extraocular movements intact, sclera anicteric, conjunctiva clear. ENT: moist mucous membranes. NECK: supple. LUNGS: Breath sounds equal, clear to auscultation bilaterally HEART: Regular rate and rhythm, S1, S2 ABDOMEN: Soft, nontender, nondistended, normoactive bowel sounds, no guarding, no rebound. NEUROLOGICAL: facial droop on the R, tongue deviation to the R, L lid lag, rue strength 3/5 worse distally, RLE strenght 4+/5 worse distally, proximally 4+/5, bicep andpatellare reflexes 1+ b/l. PSYCH: Normal mood, normal affect. SKIN: Warm, dry Laboratory Results - last 24 hr 04/07/19 04/08/19 04/08/19 21:17 05:56 10:59 POC Glucometer 143 140 147 04/08/19 16:12 POC Glucometer 121 Active Medications Generic Name Dose Route Start Last Admin Trade Name Freq PRN Reason Stop Dose Admin Docusate Sodium 100 mg 04/03/19 22:00 04/08/19 09:06 Colace - PO Not Given BID [facility] Enoxaparin Sodium 40 mg 04/03/19 10:00 04/08/19 09:07 Lovenox - SQ Not Given DAILY [facility]AY Insulin Aspart 1 vial 04/03/19 07:00 04/08/19 16:13 Novolog Vial Sliding Scale - SQ Not Given ACHS [facility] Protocol Pantoprazole Sodium 40 mg 04/03/19 10:00 04/08/19 09:06 Protonix - PO 40 mg DAILY [facility]AY Administration Prednisone 50 mg 04/09/19 10:00 Deltasone - PO DAILY [facility] ASSESSMENT/PLAN: This is a 28 yo F with PMH of MS (diagnosed 6 yrs ago), MDD, and HARLEY, presenting per Dr Danisha barker with speech abnormality, and worsening R sided weakness to receive IV steroids. slurring of her speech and slowed mentation x 1 mo, R hand numbness x 3w, RUE weakness, RLE weakness with gait bnormality and worsened dysarthria x 1w. CT head 03/20: L periventricular lesion. MRI brain 03/27 and C spine 03/30: progression of MS plaque burden in brain , plaques diffusely in C spine from C2-C6. She had not been on MS medication for 1.5 years due to flushing from Tecfidera. Restarted on Tecfidera last week. Acute on Chronic exacerbation of MS MDD HARLEY -Medrol 250 q6h completed, start prednisone taper -ISS, BGM ACHS -PPI gi ppx, sandra dvt ppx -speech swallow eval completed with barium swallow; mildly labored mastication. no change in diet -PT -psych consult, prn klpavel. -patient does not wish to continue cymbalta due to side effect -pending placement in [facility] Problem List - Problems (1) Major depression Code(s): F32.9 - MAJOR DEPRESSIVE DISORDER, SINGLE EPISODE, UNSPECIFIED (2) Anxiety disorder Code(s): F41.9 - ANXIETY DISORDER, UNSPECIFIED (3) Multiple sclerosis Code(s): G35 - MULTIPLE SCLEROSIS Visit type - Emergency Visit Emergency Visit: Yes ED Registration Date: 04/02/19 Care time: The patient presented to the Emergency Department on the above date and was hospitalized for further evaluation of their emergent condition. - New Patient This patient is new to me today: No - Critical Care Critical Care patient: No - Discharge Referral Referred to [facility] Med P.C.: No
[2019-04-09] MEDS: INSULIN SLIDING SCALE (NOVOLOG) 1 VIAL SQ SCH ×3 (06:41→11:22)
[2019-04-09 09:08] VITALS: BP 108/60; PULSE 98; TEMP 97.2
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
--- NOTE | 2019-04-09 09:37 | PN ---
Teaching Attending Note Name of Resident: Flory Hall ATTENDING PHYSICIAN STATEMENT I saw and evaluated the patient. I reviewed the resident's note and discussed the case with the resident. I agree with the resident's findings and plan as documented with exceptions below. SUBJECTIVE: patient seen and examined, awaiting dc. right hand symptoms with some improvement. Overall better. OBJECTIVE: Vital Signs Period Temp Pulse Resp BP Sys/Rodas Pulse Ox Last 24 Hr 97.2 F-98.7 F 45-98 18-20 108-137/57-86 Intake & Output 04/06/19 04/07/19 04/08/19 04/09/19 23:59 23:59 23:59 23:59 Intake Total 1800 1800 1150 250 Balance 1800 1800 1150 250 General: sitting in bed in no acute distress Neck: soft, supple, no JVD Chest: CTAB, no rales or wheezing CVS:S1S2 regular abdomen:soft, NT, nD Extremities: no edema neuro: AAOx3, speech improved, RLE 4/5, RUE 3/5, overall unchanged Psych: anxious but appropriate ASSESSMENT AND PLAN: 28 yof with PMhx of MS, MDD, HARLEY, sent by neurologist for Right sided weakness and slurred speech progressive over 1 month and MRI brain consistent with worsening demyelinating lesions, for pulse dose steroids -Multiple sclerosis flare -Generalized anxiety disorder -MDD Plan: Neurology input noted. Symptoms improved s/p 5 days of solumedrol. Prednisone taper Recently resumed on Tecfidera outpatient Psychiatry input noted. Continue cymbalta. Discussed with neurology, hold off on provigil for now. ISS while on steroids PT eval noted. Dispo dc to [facility] today. Plan discussed with patient and social work, all questions answered.
[2019-04-09] MEDS: DOCUSATE SODIUM 100 MG CAPSULE (FP) PO SCH (09:48)
[2019-04-09] MEDS: PANTOPRAZOLE 40 MG TABLET (FP) PO SCH (09:48)
[2019-04-09] MEDS: ENOXAPARIN NA (PORCINE) 40 MG/0.4 ML DISP.SYRIN SQ SCH (09:48)
[2019-04-09] MEDS ORDERED: predniSONE 20 MG TABLET (UD) PO ONE (10:00)
[2019-04-09] MEDS ORDERED: predniSONE 20 MG TABLET (UD) PO SCH ×2 (10:00)
[2019-04-10] MEDS ORDERED: predniSONE 10 MG TABLET (UD) PO ONE (10:00)
[2019-04-11] MEDS ORDERED: predniSONE 20 MG TABLET (UD) PO ONE (10:00)
[2019-04-12] MEDS ORDERED: predniSONE 10 MG TABLET (UD) PO ONE (10:00)
== END 2019-04-09 11:35 | DRG 43 ==
LOC: JER 17:12 → JERBED 19:56 → J5S 04-03 01:53
PROVIDERS: ADMIT Internal Medicine; ATTEND Hospitalist
DX: G35 Multiple sclerosis (principal); F41.8 Other specified anxiety disorders; F17.210 Nicotine dependence, cigarettes, uncomplicated; R47.01 Aphasia; R53.1 Weakness
CPT/HCPCS: 36415; 74230-TC-FY; 80048; 80053; 81003; 82962; 83735; 84100; 84443; 84703; 85025; 85730; 92611-GN; 93005; 93010; 97116-GP; 97162-GP; 99283-25